=== PATIENT | female | born 2000 | race Caucasian/White ===

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

== ENCOUNTER 2018-01-01 01:58 | Inpatient (IN) | payer MEDICAID, SELFPAY ==
--- NOTE | 2017-12-30 | PLAC_PTH ---
PATIENT: USHA HELMS LOC: [facility] U#:[id number] AGE/SX: 17/F ROOM: WP005 RE01/01/[address]: Dr. Carmela Dietz MD : 2000 BED: 1 DIS: 01/05/2018 SPEC #: [id number] RECD: 12/30/17 08:43 STATUS: MARCOS REQ #: [id number] WILLARD: 12/30/17 00:[address]: Carmela Dietz DEPT: SURGICAL PATHOLOGY RECD BY: Benito Bowie ENTERED: 01/01/18 13:39 SP TYPE: PLACENTA OTHR DR: MD Dr. Terrance Gilliam MD Tissues: Placenta, NOS Procedures: Surgery Specimen Level V HEADER OPERATION: Primary section PRE-OP DIAGNOSIS: Primary section TISSUE SUBMITTED: Placenta MICROSCOPIC DIAGNOSIS Placenta: Placental disc - third trimester placenta (521 gm). - Focal acute vasculitis of subamnionic blood vessels. - Focal increased intervillous and perivillous fibrin deposition (peripheral portion of placenta). Membranes - acute chorioamnionitis. Umbilical cord - three blood vessels and acute funisitis. SJ:james 01/03/18 MICROSCOPIC DESCRIPTION Slides are reviewed. GROSS DESCRIPTION SPECIMEN: PLACENTA / CLINICAL INFORMATION: A. Weight: 3.494 kg B. Gestational Age: 39 weeks C. Sex: Female PLACENTAL WEIGHT (POST FIXATION): 521 gm PLACENTAL DIMENSIONS: 20 x 17 x 3 cm PLACENTAL SHAPE: Usual ovoid PLACENTAL WEIGHT FOR GESTATIONAL AGE: Within 10-99th percentile MEMBRANES - Present A. Insertion: Marginal B. Site of rupture from edge: 6 cm from edge of placental disc and are partly fragmented. C. Color of membrane: Alvarez-diallo D. Abnormalities: None UMBILICAL CORD - Present A. Color: Alvarez-diallo B. Insertion: Paracentral C. Length: 24 cm D. Diameter: 1.2 cm E. Number of vessels: Three F. Abnormalities: None PLACENTAL DISC - Present A. Color of surface: Alvarez-diallo B. surface abnormalities: None C. Maternal cotyledons: Intact with minimal tears. D. Attached retro placental clot: No clot E. Cut surface: Dark red and spongy F. Lesions: Peripheral portion of the placenta shows a focal plaque-like area on the maternal surface. Sections do not reveal any mass lesion. G. Separate clot: Absent SECTIONS SUBMITTED: 1. Membrane roll 2. Cord, maternal end 3. Cord, end 4. Placental disc, and maternal surfaces 5. Placental disc, and maternal surfaces 6. Placental disc, and maternal surfaces, peripheral portion of placenta with plaque-like area and increased calcification. LAVON:james 01/02/18 TC:2 CPT: 54947
[2017-12-31 23:54] VITALS: BMI 32.4
[2018-01-01] VITALS (25 sets, daily range): BP systolic 91–143; BP diastolic 33–68; PULSE 95–114; RESP 16–20; TEMP 36.3–37.7; O2SAT 93–100
[2018-01-01 00:07] LABS: Bacteria 0 SEEN /hpf (None Seen); Mucous, Urine 0 SEEN /hpf (<or=2+)
[2018-01-01 00:15] LABS: Color, Urine Yellow (Yellow); Glucose, Dipstick Normal (Normal); Ketone-Dipstick Negative (Negative); Leukocyte Esterase-Dipstick 100 /ul (Negative); Nitrite-Dipstick Negative (Negative); Occult Blood-Urine Negative /ul (Negative); Protein-Dipstick Negative (Negative); Urine Bilirubin Dipstick Negative (Negative); Urine Clarity Clear (Clear); Urine Urobilinogen Normal (Normal)
[2018-01-01 00:24] LABS: Red Blood Cells-Urine 0-5 SEEN /hpf (0-5); Squamous Epithelial Cells - UA 5-10 SEEN /hpf (5-10); White Blood Cells 5-10 SEEN /hpf (0-5)
[2018-01-01] MEDS: Lactated Ringers 1,000 ML 999 ML IV (01:10)
[2018-01-01 01:41] LABS: Hematocrit 36.1 % (37-47); Hemoglobin 12.2 g/dl (12.0-15.0); Mean Corp Hgb Conc 33.8 g/gl (32-36); Mean Corpuscular Hgb 31.2 pg (27.0-32.0); Mean Corpuscular Volume 92.3 fL (81-99); Mean Platelet Vol. 10.1 fl (6.2-12.0); Platelet Count 298 K/mm3 (150-450); RBC Distribution Width CV 13.9 % (11.6-14.6); Red Blood Count 3.91 M/mm3 (4.2-5.4); White Blood Count 22.2 K/mm3 (4.4-11.0)
[2018-01-01 01:43] LABS: Scan Indicated on CBC? Y/N NO
[2018-01-01 01:48] LABS: Fibrinogen 558 mg/dl (203-444)
[2018-01-01] MEDS: Acetaminophen 500 MG Tablet 1000 MG PO (01:48)
[2018-01-01] MEDS: Ondansetron 4 MG/2 ML Vial IV (01:49)
[2018-01-01 01:54] LABS: ROM Internal Control Test YES-OK TO RESULT pt. (Internal QC)
[2018-01-01 01:55] LABS: ROM Patient Test POSITIVE (Negative)
[2018-01-01] MEDS: Cefazolin 2 GM in 0.9% Normal Saline 100 ML IV (02:20)
--- NOTE | 2018-01-01 03:05 | HP.PCM_ITS ---
- Problem List (1) SROM (spontaneous rupture of membranes) Status: Acute (2) Maternal fever during labor Status: Acute (3) Chorioamnionitis in third trimester Status: Acute Qualifiers: Fetus number: single or unspecified fetus Qualified Code(s): O41.1230 - Chorioamnionitis, third trimester, not applicable or unspecified History Date of Admission: 01/01/18 Final ОЛЕГ: 01/06/18 Final ОЛЕГ Source: US <20 weeks Gestational age: 39 Weeks and 2 Days History of this : This is a 17 year-old, G [2], P [0], at 39 weeks gestational age reporting onset of increasing abdominal and back pain. Patient reports +FM, denies VB or LOF. Patient initiated care in 1st trimester, ML to [facility] at 22 weeks x 8 visits. course uncomplicated. Initial temperature was 99.6 F per nursing staff on triage admission and within an hour maternal temperature increased to 100.8 F and then 101.9 F. Patient also started vomiting and feeling nauseous. Small gush fluid from vagina noted at 0020 01/01/18 during episode of vomiting. Allergies diphenhydramine [From Benadryl] Allergy (Verified 12/30/17 00:38) Unknown Penicillins Allergy (Verified 12/30/17 00:38) Unknown codeine Adverse Reaction (Verified 12/31/17 23:56) Unknown Home Medications: Home Medications Vit Calc,Iron,Folic [ Vitamins] 1 each PO DAILY 07/09/17 Smoking Status: Former smoker Alcohol: None Substance Use Type: Marijuana Number of Fetus(es): 1 Heart Tracing: Baseline initially 160 with minimal to moderate variability, no decelerations noted. After episode of vomiting and noted spike in maternal temperature to 100.8 and then 101.9 F baseline noted to be 180 with minimal to moderate variability, no decelerations noted. Currently after Tylenol 1 g PO x 1 and initiation of triple antibiotics for suspected chorioamnionitis (Triple I) baseline 155 with minimal to moderate variability, no decelerations noted. TOCO Analysis: Frequent ctx q 2 minutes lasting 30-60 seconds, palpating moderately strong History Past Pregnancies: Past Pregnancies Delivery Date Name GA/Weeks Outcome Route Weight Gender Labor Length Anesthesia Delivery Location Provider FOB Labs: GBS +, Urine Tox = + marijuana, A+, Abs screen NEG, Rubella IMM, HIV NEG, HepBsAg NEG, CBC WNL x 2, 1 GCT WNL, RPR NR, TSH WNL, Urine Culture NEG Expected Delivery Method: Spontaneous Vaginal Describe any other labor & delivery plans:: Desires epidural and other pain management options Number of Visits: 8 with [place] office, ML @ 22 wks. Review of Systems Constitutional: Reports: Chills, Fever Cardiovascular: Denies: Chest Pain, Edema Respiratory: Denies: Shortness of Breath Gastrointestinal: Reports: Abdominal Pain, Nausea, Vomiting Genitourinary: Denies: Dysuria, Frequency Gynecological: Denies: Vaginal bleeding, Vaginal discharge Skin: Denies: Rash Neurological: Denies: Blurred vision, Headaches Physical Exam General: Alert, Oriented x3, Cooperative HEENT: Atraumatic, Normocephalic Cardiovascular: Regular Rhythm, Tachycardic Lungs: Normal air movement Abdomen: Soft, Non-Distended, No Hepato-splenomegaly, Gravid - EFW = 7.5 #, Tender Extremities:: No edema, No tenderness/swelling Neurological: Cranial nerves II-XII grossly intact, Deep Tendon Reflexes 2+/4 and Symmetrical PEDIATRIC ORTHODONTIST: Normal external genitalia Estimated gestational size: Appropriate for gestational size Presentation: Cephalic Cervix Dilation (cm): 3 - Initial exam by RN Station: -2 Effacement (%): 75 Assessment/Plan All Active Problems False labor after 37 completed weeks of gestation (Acute) Shortness of breath due to in third trimester (Acute) SROM (spontaneous rupture of membranes) (Acute) Maternal fever during labor (Acute) Chorioamnionitis in third trimester (Acute) Ectopic without intrauterine (Acute) This is a 17 year-old, G [2], P [0], at 39 weeks gestational age, SROM, Maternal Fever, Category II FHT. DDx: Probable Triple I- purulent amniotic fluid at AROM of forebag, Appendicitis - unlikely as no guarding or rebound tenderness on exam, Influenza - Ruled Out, Placental Abruption - not ruled out, though abdomen is non-rigid and does soften between contractions P: 1) Consultation with Dr. J Luis BARBOZA OB back-up re: this patient - based on patient presentation and lab work patient likely has Probable Triple I, will continue to assess for presence of other possible DDx 2) Admit patient - start IV triple antibiotic course at this time. Patient is PCN allergic, will give Ancef in lieu of Ampicillin 3) Placement of internal FSE and IUPC monitors, AROM for purulent non-odorous amniotic fluid noted. SVE = 4/80/-2 on repeat SVE by this provider. 4) Nitrous oxide at this time, anesthesia consult for epidural placement. 5) Reassess for cervical change for change in maternal or status Re GONZALEZ
[2018-01-01] MEDS: Lactated Ringers 1,000 ML 50 ML IV ×2 (03:14→06:00)
[2018-01-01] MEDS: fentaNYL-bupivacaine (epidural) 100 ML BAG EPIDURAL (03:17)
[2018-01-01] MEDS: 0.9% Saline Lock 10 ML Syringe IV (03:30)
[2018-01-01 05:33] LABS: Vista UDS pH Range 7
[2018-01-01 05:44] LABS: Amphetamine Urine VISTA NEGATIVE (<1000 ng/mL); Barbiturate Urine VISTA NEGATIVE (< 200 ng/mL); Benzodiazepine Urine VISTA NEGATIVE (< 200 ng/mL); Cocaine Urine VISTA NEGATIVE (< 300 ng/mL); Ecstacy Urine VISTA NEGATIVE (< 500 ng/mL); Methadone Urine VISTA NEGATIVE (< 300 ng/mL); PCP Urine VISTA NEGATIVE (< 25 ng/mL); THC Urine VISTA NEGATIVE (< 50 ng/mL)
--- NOTE | 2018-01-01 06:23 | PCM.PN.OB ---
Patient Problems: Active and Suspected Problems SROM (spontaneous rupture of membranes) (Acute) Maternal fever during labor (Acute) Chorioamnionitis in third trimester (Acute) Subjective: Patient able to cope better with ctx at this time, reports some sharp vaginal pain still however with contractions. Over last hour, decreased variability noted and occasional late decels noted. Nursing staff called this provider to evaluate tracing. Objective: Abdomen with mild tenderness x 4 quadrants, no rebound or guarding noted FHT baseline 155 minimal variability, no accels, rare mild decels and rare late decels that easily resolve with position change Ctx q 2-3 minutes, palpate moderately strong SVE = 5-6/95/-1 on last exam 20 minutes ago. - Physical Exam Weight: 210 lb 5.136 oz Body Mass Index (BMI) 32.4 Microbiology Past 72 Hours 01/01/18 01:50 Influenza Types A,B Direct FA (HERSON) - Final Mucosa - Nose Laboratory Tests Past 24 Hrs 12/31/17 01/01/18 01/01/18 23:45 01:10 01:10 WBC 22.2 H RBC 3.91 L Hgb 12.2 Hct 36.1 L MCV 92.3 MCH 31.2 MCHC 33.8 RDW 13.9 RDW Differential 46.0 H Plt Count 298 MPV 10.1 Fibrinogen Urine Color Yellow Urine Clarity Clear Urine pH 7.0 Ur Specific [place] 1.010 Urine Protein Negative Urine Glucose (UA) Normal Urine Ketones Negative Urine Occult Blood Negative Urine Nitrite Negative Urine Bilirubin Negative Urine Urobilinogen Normal Ur Leukocyte Esterase 100 H Urine RBC 0-5 SEEN Urine WBC 5-10 SEEN Ur Squamous Epith Cells 5-10 SEEN Urine Bacteria 0 SEEN Urine Mucus 0 SEEN Vag Amniotic Fld Detect Urine Opiates Screen Urine Methadone Screen Ur Barbiturates Screen Ur Phencyclidine Scrn Ur Amphetamines Screen U Methamphetamin-MDMA U Benzodiazepines Scrn Urine Cocaine Screen U Cannabinoids Screen Ur Drug Screen Comment Blood Type A POSITIVE Antibody Screen NEGATIVE 01/01/18 01/01/18 01/01/18 01:10 01:40 05:15 WBC RBC Hgb Hct MCV MCH MCHC RDW RDW Differential Plt Count MPV Fibrinogen 558 H Urine Color Urine Clarity Urine pH Ur Specific [place] Urine Protein Urine Glucose (UA) Urine Ketones Urine Occult Blood Urine Nitrite Urine Bilirubin Urine Urobilinogen Ur Leukocyte Esterase Urine RBC Urine WBC Ur Squamous Epith Cells Urine Bacteria Urine Mucus Vag Amniotic Fld Detect POSITIVE H Urine Opiates Screen NEGATIVE Urine Methadone Screen NEGATIVE Ur Barbiturates Screen NEGATIVE Ur Phencyclidine Scrn NEGATIVE Ur Amphetamines Screen NEGATIVE U Methamphetamin-MDMA NEGATIVE U Benzodiazepines Scrn NEGATIVE Urine Cocaine Screen NEGATIVE U Cannabinoids Screen NEGATIVE Ur Drug Screen Comment Blood Type Antibody Screen Medical Necessity - Tobacco Use Smoking Status: Former smoker Assessment/Plan All Active Problems False labor after 37 completed weeks of gestation (Acute) Shortness of breath due to in third trimester (Acute) SROM (spontaneous rupture of membranes) (Acute) Maternal fever during labor (Acute) Chorioamnionitis in third trimester (Acute) Ectopic without intrauterine (Acute) A: 17 y/o @ 39.2 weeks, Category II FHT, Suspected Triple I (Chorioamnionitis) P: 1) Consultation with Dr. Dietz done re: this patient - plan for primary LTCS if changes in heart rate or if cervix is unchanged. 2) During the writing of this progress note - prolonged decel x 2 minutes with zak to 90's. Minimal variability noted still at this time. Will proceed with LTCS at this time. Dr. J Luis BARBOZA en route to hospital now. 3) Transfer of care to medical management Re GONZALEZ
[2018-01-01] MEDS: Oxytocin 30 units/NS 500 ml 30 UNITS/500 ML IV.SOLN 167 UNITS IV (07:01)
--- NOTE | 2018-01-01 07:20 | NURSING ---
Received report from King Elkins RN in OR. I will assume care of patient a this time.
--- NOTE | 2018-01-01 07:31 | OP.PCM_ITS ---
Delivery Classification: LUCINDA Final ОЛЕГ: 01/06/18 Gestational age: 39 Weeks and 2 Days Indications for : Nonreassuring Status - Prolonged decelerations, intermittent mitten variable decelerations, persistent category 2 tracing remote from delivery, - - Acute chorioamnionitis, prolonged rupture of membranes Description of Procedure: Oneil Dutta PETEJacobo had been comanaging this patient for suspected prolonged rupture of membranes and acute chorioamnionitis. She had intermittent prolonged decelerations along with tachycardia. At times she had minimal variability, at times there is moderate. The decision was made to proceed with section for persistent category 2 tracing remote from delivery with acute chorioamnionitis. The patient was taken to the operating room. She was prepped and draped in the dorsal supine position with a leftward tilt. A Pfannenstiel skin incision was made approximately 2 cm above the symphysis pubis and carried through to underlying layer fascia with the scalpel. The fascia was incised incised in the midline and extended laterally with the Alfonso scissors. The fascia was dissected off the rectus muscles with blunt and sharp dissection. The rectus muscles were in the midline and the peritoneum was entered bluntly. The peritoneal incision was stretched and the bladder blade was placed. The uterine incision was made in a low transverse fashion with the scalpel and extended superiorly and inferiorly with blunt dissection. The amniotic membranes had been previously ruptured, some cloudy, purulent appearing fluid returned after hysterotomy. The 's head was brought to the incision in the flexed position and delivered without difficulty. The remainder of the infant was delivered with gentle traction and fundal pressure in the standard fashion. The mouth and nares were bulb suctioned. The cord was clamped and cut as the was stimulated. Cord clamping was not delayed due to the infant not immediately being vigorous. She had good tone, color and a normal heart rate but not respiratory effort. The was handed off to the waiting nursing staff. As the infant was transported and arrived to the warmer, she began to cry. The placenta was delivered with fundal massage and gentle traction in the standard fashion. The uterus was exteriorized and cleared of all clots and debris. . The uterine incision was closed with #1 Vicryl in a running locked fashion. A second layer of the same suture was used in an imbricating fashion. The incision was examined and was found to be hemostatic. The uterus was placed back into the peritoneal cavity and hemostasis was again confirmed. The rectus muscles were examined and any bleeding was Bovie cauterized. The parietal peritoneum and rectus muscles were closed en bloc with an 0 Vicryl running suture. The surgical teams outer gloves were then changed. The rectus fascia was examined and any bleeding was Bovie cauterized and the rectus fascia was closed with 1 Vicryl suture in a running standard fashion. The subcutaneous tissue was examining and any bleeding was Bovie cauterized. The subcutaneous tissue was reapproximated with 3-0 Vicryl suture. The skin was closed in a subcuticular fashion by the HEEL SEAT FILLER with me present in the labor and delivery suite. I performed the remainder of the procedure with assistance. All sponge, lap, and needle counts were correct. The patient was taken to her room for recovery in a stable condition. Amniotic Membrane Rupture Type: Spontaneous - at home Amniotic Fluid Description: Cloudy - no odor Placenta Disposition: Sent to Pathology Drain: Olguin to straight drain Fluids Replaced: 1300 cc Cord Entanglement: Around neck x 1, loose Nuchal Cord Compression: Without compression Cord Vessel Description: 3 Vessels Esitmated Blood Loss (ml): 900 Infant Gender: Female Delayed cord clamping: No Pre-op Antibiotic Given: - - ampicillin, gentamicin and clindamycin for chorioamnionitis Complications: None - Admit VTE Documentation VTE Present on Admission: No VTE Mechan Device Prophylaxis: SCD's VTE Pharm Prophylaxis ordered?: Yes
[2018-01-01 08:43] LABS: Pathology Specimen OB SEE PATHOLOGY REPORT
--- NOTE | 2018-01-01 09:52 | NURSING ---
Dr. Dietz at bedside to evaluate patient. Ultrasound performed to rule out retention of placenta. No clots visualized. Uterus is measuring small on ultrasound, 6cm. New orders received for stat CBC, Lactic acid, and lactate. Will call OB with results.
[2018-01-01 10:37] LABS: Hematocrit 29.7 % (37-47); Hemoglobin 9.9 g/dl (12.0-15.0); Mean Corp Hgb Conc 33.3 g/gl (32-36); Mean Corpuscular Hgb 31.1 pg (27.0-32.0); Mean Corpuscular Volume 93.4 fL (81-99); Mean Platelet Vol. 10.3 fl (6.2-12.0); Platelet Count 259 K/mm3 (150-450); RBC Distribution Width CV 14.1 % (11.6-14.6); RBC Distribution Width SD 46.4 fl (35.1-43.9); Red Blood Count 3.18 M/mm3 (4.2-5.4); White Blood Count 28.8 K/mm3 (4.4-11.0)
[2018-01-01 10:45] LABS: LDH 171 U/L (84-246); Lactic Acid 2.8 mmol/L (0.4-2.0)
[2018-01-01 10:53] LABS: Scan Indicated on CBC? Y/N NO
--- NOTE | 2018-01-01 11:02 | NURSING ---
late entry-fluids at delivery were clear but thick
--- NOTE | 2018-01-01 11:52 | RAD_ITS ---
STUDY: X-RAY CHEST REASON FOR EXAM: Female, 17 years old. Fever since prior to baby delivery. TECHNIQUE: Single AP portable semierect view of the chest. COMPARISON: None. FINDINGS: The lungs are clear and expanded. There is no demonstrated pleural abnormality. The heart size is upper normal. Normal mediastinum and laura. Normal visualized pulmonary arteries. Normal visualized aortic arch and descending thoracic aorta. Normal visualized thoracic spine. Normal visualized ribs, clavicles, and shoulders. There is no demonstrated abnormality of the visualized soft tissue structures of the upper abdomen. RAD/Chest 1 View (Portable) IMPRESSION: No acute cardiopulmonary disease. Electronically Signed: Rishabh Ayala MD at 13:13 EDT , Service support ,
[2018-01-01] MEDS: Lactated Ringers 1,000 ML 100 ML IV (12:24)
--- NOTE | 2018-01-01 13:09 | NURSING ---
Report given to Elida Hauser RN. She will assume care of patient at this time.
[2018-01-01] MEDS: Cefazolin 1 GM/50 ML BAG IV ×2 (13:36→22:13)
--- NOTE | 2018-01-01 13:37 | NURSING ---
Spoke to Dr. Pinto's nurse practioner about patient condition. Notified of vital signs, urinary output, new findings of swollen legs and abdomen. Notified of 500ml fluid bolus given. Scheduled dose of Toradol being held at this time. She will notify Dr. Pinto and call back with any orders. Dr. Pinto will be on unit to see patient in the 2 o'clock hour.
--- NOTE | 2018-01-01 13:46 | NURSING ---
[id number] this nurse received a call from 's medical research assistant Madyson, she states will be down to see the pt in about 30min.
[2018-01-01 14:04] LABS: Reflex Lactate? Y
[2018-01-01] MEDS: HYDROmorphone 0.5 MG/0.5 ML SYRINGE IV (14:22)
[2018-01-01 15:22] LABS: Hematocrit 28.6 % (37-47); Hemoglobin 9.5 g/dl (12.0-15.0); Mean Corp Hgb Conc 33.2 g/gl (32-36); Mean Corpuscular Hgb 30.7 pg (27.0-32.0); Mean Corpuscular Volume 92.6 fL (81-99); Mean Platelet Vol. 9.5 fl (6.2-12.0); Platelet Count 220 K/mm3 (150-450); RBC Distribution Width CV 14.5 % (11.6-14.6); Red Blood Count 3.09 M/mm3 (4.2-5.4)
[2018-01-01 15:43] LABS: Scan Indicated on CBC? Y/N NO
[2018-01-01 15:46] LABS: Lactic Acid 1.6 mmol/L (0.4-2.0)
--- NOTE | 2018-01-01 15:49 | CON.PCM_ITS ---
Problem List (1) Severe sepsis Status: Acute (2) Shortness of breath due to in third trimester Status: Acute (3) SROM (spontaneous rupture of membranes) Status: Acute (4) Maternal fever during labor Status: Acute (5) Chorioamnionitis in third trimester Status: Acute Qualifiers: Fetus number: single or unspecified fetus Qualified Code(s): O41.1230 - Chorioamnionitis, third trimester, not applicable or unspecified Reason for Consult Date of Consultation: 01/01/18 Reason for Consultation: Severe sepsis History of Present Illness: The patient is a 17 year old F at 39 weeks gestation presented to [facility] on 12/31/2017 secondary to increasing abdominal and back pain. Patient reportedly had an uncomplicated course, but was noted in triage to develop a fever of 101.9 ?F. This was associated with nausea and vomiting. Patient reportedly had a small gush of fluid noted from the vagina during an episode of vomiting. Patient was admitted to the floor and monitored. Earlier today, patient was noted to have fever with decelerations. This was associated with sharp vaginal pain. Patient was noted to have mild tenderness throughout all 4 quadrants. Laboratory workup showed a significant leukocytosis, but flu was negative. Patient was diagnosed with acute chorioamnionitis and noted to have intermittent prolonged decelerations along with tachycardia. The decision was made to proceed to . During , amniotic membranes were seen to be ruptured with a cloudy purulent fluid. Following the surgery, patient was noted to have tachycardia, marginal blood pressures and fever so an ICU consult was obtained. Patient was noted to have an elevated lactate of 2.8. Patient was given a 500 cc fluid challenge with no significant change in blood pressure or heart rate per nursing staff. Patient was noted to have increased swelling of the legs and abdominal cavity. Patient was evaluated by my nurse practitioner at approximately 11 AM. Patient has been treated with clindamycin and gent. Patient has IV fluids going at 100 cc/h, but is tolerating p.o. Patient was examined by myself at approximately 3 PM. At that time, patient reported abdominal pain of 5 out of 10 and had received half a milligram of Dilaudid. Patient denied any nausea or vomiting for me. Patient did report a history of obstructive sleep apnea and stated she was treated until the age of 1. She currently does not use any noninvasive therapy for obstructive sleep apnea. Patient also reports a suspicion of asthma in the past, but this is never been confirmed with pulmonary function tests or inhaler therapy. 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 Patient Problems: Active and Suspected Problems SROM (spontaneous rupture of membranes) (Acute) Maternal fever during labor (Acute) Chorioamnionitis in third trimester (Acute) Severe sepsis (Acute) Objective: Chest x-ray was personally reviewed. This shows no acute infiltrate or mediastinal widening. Heart appears to be of normal size. - Physical Exam General: Alert, Oriented x3, Cooperative, No apparent distress, - - Appears stated age. Speaking in full sentences. HEENT: Atraumatic, PERRLA, EOMI, Normocephalic, - - Slight scleral injection without icterus Oral: Moist Mucosa, No Gingival or Mucosal Lesions/ Ulcerations Neck: Supple, No Nodes, Trachea Midline, JVD, Right Lungs: Clear to auscultation, Normal air movement, No rhonchi, No wheeze, No rales, - - Symmetric expansion. No dullness to percussion. Cardiovascular: Regular rate, Regular Rhythm, Normal S1, Normal S2, Murmur - Flow murmur noted, grade 2 out of 6, No rub noted, No Gallop, Tachycardic Abdomen: Soft, Bowel Sounds Not Present, Distended, Tender - Some guarding with mild rebound. Extremities: No clubbing, No cyanosis, Edema Skin: No rashes, No breakdown, Incision - Clean, dry and intact Musculoskeletal: No Tenderness to Palpation of Joints or Extremities Lymphatic: No Cervical, Supraclavicular, or Inguinal Adenopathy Neurological: Cranial nerves II-XII grossly intact, Neuro grossly intact, Motor Exam 5/5 strength throughout Psych/Mental Status: Alert and oriented to time, place, person, mood and affect Vital Signs Temp Pulse Resp BP Pulse Ox 37.2 C 100 16 91/33 L 98 01/01/18 14:24 01/01/18 14:24 01/01/18 14:24 01/01/18 14:24 01/01/18 14:24 Oxygen Delivery Method Room Air Weight: 95.4 kg Body Mass Index (BMI) 32.4 Intake and Output for Last 24 Hours 12/30/17 12/31/17 01/01/18 23:59 23:59 23:59 Intake Total 5203 / 5203 Output Total 1050 / 1050 Balance 4153 / 4153 Microbiology Past 72 Hours 01/01/18 01:50 Influenza Types A,B Direct FA (HERSON) - Final Mucosa - Nose Laboratory Tests Past 24 Hrs 12/31/17 01/01/18 01/01/18 23:45 01:10 01:10 WBC 22.2 H RBC 3.91 L Hgb 12.2 Hct 36.1 L MCV 92.3 MCH 31.2 MCHC 33.8 RDW 13.9 RDW Differential 46.0 H Plt Count 298 MPV 10.1 Fibrinogen Lactic Acid Lactate Dehydrogenase Urine Color Yellow Urine Clarity Clear Urine pH 7.0 Ur Specific Williamson 1.010 Urine Protein Negative Urine Glucose (UA) Normal Urine Ketones Negative Urine Occult Blood Negative Urine Nitrite Negative Urine Bilirubin Negative Urine Urobilinogen Normal Ur Leukocyte Esterase 100 H Urine RBC 0-5 SEEN Urine WBC 5-10 SEEN Ur Squamous Epith Cells 5-10 SEEN Urine Bacteria 0 SEEN Urine Mucus 0 SEEN Vag Amniotic Fld Detect Urine Opiates Screen Urine Methadone Screen Ur Barbiturates Screen Ur Phencyclidine Scrn Ur Amphetamines Screen U Methamphetamin-MDMA U Benzodiazepines Scrn Urine Cocaine Screen U Cannabinoids Screen Ur Drug Screen Comment Blood Type A POSITIVE Antibody Screen NEGATIVE 01/01/18 01/01/18 01/01/18 01:10 01:40 05:15 WBC RBC Hgb Hct MCV MCH MCHC RDW RDW Differential Plt Count MPV Fibrinogen 558 H Lactic Acid Lactate Dehydrogenase Urine Color Urine Clarity Urine pH Ur Specific Williamson Urine Protein Urine Glucose (UA) Urine Ketones Urine Occult Blood Urine Nitrite Urine Bilirubin Urine Urobilinogen Ur Leukocyte Esterase Urine RBC Urine WBC Ur Squamous Epith Cells Urine Bacteria Urine Mucus Vag Amniotic Fld Detect POSITIVE H Urine Opiates Screen NEGATIVE Urine Methadone Screen NEGATIVE Ur Barbiturates Screen NEGATIVE Ur Phencyclidine Scrn NEGATIVE Ur Amphetamines Screen NEGATIVE U Methamphetamin-MDMA NEGATIVE U Benzodiazepines Scrn NEGATIVE Urine Cocaine Screen NEGATIVE U Cannabinoids Screen NEGATIVE Ur Drug Screen Comment Blood Type Antibody Screen 01/01/18 01/01/18 01/01/18 09:45 09:55 09:55 WBC 28.8 H RBC 3.18 L Hgb 9.9 L Hct 29.7 L MCV 93.4 MCH 31.1 MCHC 33.3 RDW 14.1 RDW Differential 46.4 H Plt Count 259 MPV 10.3 Fibrinogen Lactic Acid 2.8 H Lactate Dehydrogenase 171 Urine Color Urine Clarity Urine pH Ur Specific Williamson Urine Protein Urine Glucose (UA) Urine Ketones Urine Occult Blood Urine Nitrite Urine Bilirubin Urine Urobilinogen Ur Leukocyte Esterase Urine RBC Urine WBC Ur Squamous Epith Cells Urine Bacteria Urine Mucus Vag Amniotic Fld Detect Urine Opiates Screen Urine Methadone Screen Ur Barbiturates Screen Ur Phencyclidine Scrn Ur Amphetamines Screen U Methamphetamin-MDMA U Benzodiazepines Scrn Urine Cocaine Screen U Cannabinoids Screen Ur Drug Screen Comment Blood Type Antibody Screen 01/01/18 01/01/18 15:09 15:09 WBC Pending RBC Pending Hgb Pending Hct Pending MCV Pending MCH Pending MCHC Pending RDW Pending RDW Differential Pending Plt Count Pending MPV Fibrinogen Lactic Acid Pending Lactate Dehydrogenase Urine Color Urine Clarity Urine pH Ur Specific Williamson Urine Protein Urine Glucose (UA) Urine Ketones Urine Occult Blood Urine Nitrite Urine Bilirubin Urine Urobilinogen Ur Leukocyte Esterase Urine RBC Urine WBC Ur Squamous Epith Cells Urine Bacteria Urine Mucus Vag Amniotic Fld Detect Urine Opiates Screen Urine Methadone Screen Ur Barbiturates Screen Ur Phencyclidine Scrn Ur Amphetamines Screen U Methamphetamin-MDMA U Benzodiazepines Scrn Urine Cocaine Screen U Cannabinoids Screen Ur Drug Screen Comment Blood Type Antibody Screen Clinical Impression(s) from Imaging Studies Chest X-Ray 01/01/18 11:52 IMPRESSION: No acute cardiopulmonary disease. Electronically Signed: Rishabh Ayala MD at 13:13 EDT , Service support , Assessment/Plan Active and Suspected Problems SROM (spontaneous rupture of membranes) (Acute) Maternal fever during labor (Acute) Chorioamnionitis in third trimester (Acute) Severe sepsis (Acute) RECOMMENDATIONS: 1. Await repeat lactate 2. Continue antibiotics per OB 3. Obtain CMP for evaluation of endorgan damage 4. Monitor for abdominal compartment syndrome 5. Aggressive pain control and incentive spirometer 6. Continuous pulse ox IMPRESSIONS: 1. Severe sepsis secondary to acute chorioamnionitis and prolonged rupture of membranes Patient with fever, tachycardia and tachypnea. Lactate is elevated initially, but repeat is currently pending. Patient should have a CMP obtained to evaluate for endorgan damage. Patient has had some decreased urine output with abdominal distention. Do anticipate significant swelling over the next 24- 48 hours. Patient has been placed on appropriate antibiotics at this time. Continue to monitor urine output. Patient should continue with aggressive pain control and incentive spirometer. Would avoid morphine as this could exacerbate hypotension. Cannot exclude the need for central line placement of pressor therapy. 2. Reported BILL Patient does have obesity and reports a history of BILL in the past. Patient may benefit from a polysomnogram as an outpatient. In the interim, continuous pulse oximetry would be appropriate. If patient does desaturate, initiation of BiPAP 10/5 empirically would be appropriate. 3. Patient does not appear to have an enlarged cardiac silhouette on chest x- ray. Patient may have decreased blood pressures from dilated cardiomyopathy, but would hold off on obtaining echocardiogram until patient shows more decompensation. Otherwise routine care would be appropriate.
[2018-01-01] MEDS: Ketorolac 30 MG/ML Syringe IV ×2 (17:13→23:06)
[2018-01-01 17:40] LABS: ALB/GLOB Ratio 0.6 RATIO (0.9-2.4); AST(SGOT) 17 U/L (15-37); Alanine Aminotransfer ALT/SGPT 14 U/L (13-56); Albumin, Serum 2.1 g/dL (3.2-5.0); Alkaline Phosphatase 102 U/L (45-117); Anion Gap 10 (5-15); BUN 11 mg/dL (7-18); BUN/Creat Ratio 19.1 RATIO (10-20); Calcium,Total 7.8 mg/dL (8.5-10.1); Chloride 106 mmol/L (98-107); Creatinine, Serum 0.58 mg/dL (0.55-1.02); EST Glomerular Filtration Rate 143 mL/min (>60); Est Glom Filt Rate - Afr Amer 173 mL/min (>60); Estimated Creatinine Clearance 151.71 ml/min; Globulin 3.5 g/dL (2.2-4.2); Glucose 69 mg/dL (74-106); Potassium 3.9 mmol/L (3.5-5.1); Protein, Total 5.6 g/dL (6.4-8.2); Sodium Level 140 mmol/L (136-145)
--- NOTE | 2018-01-01 17:53 | NURSING ---
Pt assisted up into the rocking chair, pt states that helped the pain she was having in her back, pt is using the incentive spirometer and drinking water. Urometer emptied for 200cc of policy writer typist colored urine, she totals 400cc out since 1330.
[2018-01-01] MEDS: Senna/Docusate Sodium 1 Tablet PO (23:05)
[2018-01-02] VITALS (8 sets, daily range): BP systolic 98–119; BP diastolic 38–68; PULSE 102–117; RESP 14–18; TEMP 36.8–37.3; O2SAT 95–98
[2018-01-02] MEDS: Lactated Ringers 1,000 ML 100 ML IV (01:31)
[2018-01-02] MEDS: Ketorolac 30 MG/ML Syringe IV ×3 (04:54→17:17)
[2018-01-02] MEDS: Cefazolin 1 GM/50 ML BAG IV ×3 (05:54→21:55)
[2018-01-02 06:25] LABS: Hemoglobin 9.1 g/dl (12.0-15.0); Mean Corp Hgb Conc 32.5 g/gl (32-36); Mean Corpuscular Hgb 30.7 pg (27.0-32.0); Mean Corpuscular Volume 94.6 fL (81-99); Mean Platelet Vol. 9.7 fl (6.2-12.0); Platelet Count 230 K/mm3 (150-450); RBC Distribution Width CV 14.4 % (11.6-14.6); RBC Distribution Width SD 47.4 fl (35.1-43.9); Red Blood Count 2.96 M/mm3 (4.2-5.4); White Blood Count 23.1 K/mm3 (4.4-11.0)
[2018-01-02 06:27] LABS: Anion Gap 8 (5-15); BUN 11 mg/dL (7-18); BUN/Creat Ratio 18.2 RATIO (10-20); Calcium,Total 7.8 mg/dL (8.5-10.1); Chloride 110 mmol/L (98-107); EST Glomerular Filtration Rate 135 mL/min (>60); Est Glom Filt Rate - Afr Amer 164 mL/min (>60); Estimated Creatinine Clearance 146.66 ml/min; Glucose 99 mg/dL (74-106); Magnesium 1.7 mg/dL (1.6-2.6); Phosphorus 3.4 mg/dL (2.5-4.9); Potassium 3.8 mmol/L (3.5-5.1); Sodium Level 141 mmol/L (136-145)
[2018-01-02] MEDS: Enoxaparin 40 MG/0.4 ML Syringe SC (06:32)
[2018-01-02 06:33] LABS: Scan Indicated on CBC? Y/N NO
--- NOTE | 2018-01-02 07:52 | PCM.PN.OB ---
Patient Problems: Active and Suspected Problems SROM (spontaneous rupture of membranes) (Acute) Maternal fever during labor (Acute) Chorioamnionitis in third trimester (Acute) Severe sepsis (Acute) Subjective: Pain well controlled, no N/V. Average lochia. - Physical Exam General: Alert, Cooperative, No apparent distress Abdomen: Soft, Distended - moderately, softly, appropriate for postop, Tender - appropriately Skin: Incision - bandage clean, dry and intact Vital Signs Temp Pulse Resp BP Pulse Ox 98.2 F 103 H 18 100/65 98 01/02/18 03:03 01/02/18 05:54 01/02/18 05:54 01/02/18 03:03 01/02/18 05:54 Oxygen Delivery Method Room Air Weight: 95.4 kg Body Mass Index (BMI) 32.4 Intake and Output for Last 24 Hours 12/31/17 01/01/18 01/02/18 23:59 23:59 23:59 Intake Total 6303 / 6303 Output Total 1450 / 1450 1000 / 1000 Balance 4853 / 4853 -1000 / -1000 Microbiology Past 72 Hours 01/01/18 01:50 Influenza Types A,B Direct FA (HERSON) - Final Mucosa - Nose Laboratory Tests Past 24 Hrs 01/01/18 01/01/18 01/01/18 09:45 09:55 09:55 WBC 28.8 H RBC 3.18 L Hgb 9.9 L Hct 29.7 L MCV 93.4 MCH 31.1 MCHC 33.3 RDW 14.1 RDW Differential 46.4 H Plt Count 259 MPV 10.3 Sodium Potassium Chloride Carbon Dioxide Anion Gap BUN Creatinine Estim Creat Clear Calc Est GFR (MDRD) Af Amer Est GFR (MDRD) Non-Af BUN/Creatinine Ratio Glucose Lactic Acid 2.8 H Calcium Phosphorus Magnesium Total Bilirubin AST ALT Alkaline Phosphatase Lactate Dehydrogenase 171 Total Protein Albumin Globulin Albumin/Globulin Ratio 01/01/18 01/01/18 01/01/18 15:09 15:09 16:48 WBC 24.0 H RBC 3.09 L Hgb 9.5 L Hct 28.6 L MCV 92.6 MCH 30.7 MCHC 33.2 RDW 14.5 RDW Differential 49.0 H Plt Count 220 MPV 9.5 Sodium 140 Potassium 3.9 Chloride 106 Carbon Dioxide 24.0 Anion Gap 10 BUN 11 Creatinine 0.58 Estim Creat Clear Calc 151.71 Est GFR (MDRD) Af Amer 173 Est GFR (MDRD) Non-Af 143 BUN/Creatinine Ratio 19.1 Glucose 69 L Lactic Acid 1.6 Calcium 7.8 L Phosphorus Magnesium Total Bilirubin 0.50 AST 17 ALT 14 Alkaline Phosphatase 102 Lactate Dehydrogenase Total Protein 5.6 L Albumin 2.1 L Globulin 3.5 Albumin/Globulin Ratio 0.6 L 01/02/18 01/02/18 06:07 06:07 WBC 23.1 H RBC 2.96 L Hgb 9.1 L Hct 28.0 L MCV 94.6 MCH 30.7 MCHC 32.5 RDW 14.4 RDW Differential 47.4 H Plt Count 230 MPV 9.7 Sodium 141 Potassium 3.8 Chloride 110 H Carbon Dioxide 23.0 Anion Gap 8 BUN 11 Creatinine 0.60 Estim Creat Clear Calc 146.66 Est GFR (MDRD) Af Amer 164 Est GFR (MDRD) Non-Af 135 BUN/Creatinine Ratio 18.2 Glucose 99 Lactic Acid Calcium 7.8 L Phosphorus 3.4 Magnesium 1.7 Total Bilirubin AST ALT Alkaline Phosphatase Lactate Dehydrogenase Total Protein Albumin Globulin Albumin/Globulin Ratio Medical Necessity - Tobacco Use Smoking Status: Former smoker Assessment/Plan All Active Problems False labor after 37 completed weeks of gestation (Acute) Shortness of breath due to in third trimester (Acute) SROM (spontaneous rupture of membranes) (Acute) Maternal fever during labor (Acute) Chorioamnionitis in third trimester (Acute) Severe sepsis (Acute) Ectopic without intrauterine (Acute) POD#1 S/p primary c/s for chorioamnionitis and nonreassuring FHTs and subsequent sepsis clinically improved, afebrile, appears to be diuresing. WBC down cont. antibiotics for now. Ok to d/c whitman and continue to monitor Is and Os ambulate, cont. w/ incentive spirometer is doing well
[2018-01-02] MEDS: oxyCODONE 5 MG Tablet PO ×4 (08:06→22:39)
[2018-01-02] MEDS: Senna/Docusate Sodium 1 Tablet PO ×2 (08:06→21:55)
[2018-01-02] MEDS: 0.9% Saline Lock 10 ML Syringe IV ×4 (08:07→22:40)
--- NOTE | 2018-01-02 11:10 | PCM.PROGNOTE ---
Patient Problems: Active and Suspected Problems SROM (spontaneous rupture of membranes) (Acute) Maternal fever during labor (Acute) Chorioamnionitis in third trimester (Acute) Severe sepsis (Acute) Subjective: The patient was seen and examined at the bedside this morning. Events from the last 24 hours have been reviewed. The patient is currently afebrile, hemodynamically stable and maintaining appropriate oxygen saturations on room air. No overnight events were noted. The patient is resting comfortably with her mother and infant at the bedside. She denies any chest pain or shortness of breath. Pain is under control. Objective: The patient's most recent lab work, culture data and imaging studies have all been personally reviewed. Plain film chest x-ray dated January 01 revealed no acute cardiopulmonary process. Rapid influenza screen was negative. - Physical Exam General: Alert, Oriented x3, Cooperative, No apparent distress HEENT: Atraumatic, PERRLA, Normocephalic Oral: No Gingival or Mucosal Lesions/ Ulcerations Neck: Supple, No Nodes, Trachea Midline Lungs: Normal air movement, No rhonchi, No wheeze, No rales Cardiovascular: Normal S1, Normal S2, No murmurs, Tachycardic Abdomen: Bowel Sounds Present, Soft, Tender Extremities: No clubbing, No cyanosis, Edema Skin: No breakdown, Incision - C/D/I Musculoskeletal: No Tenderness to Palpation of Joints or Extremities, No Muscle Wasting Lymphatic: No Cervical, Supraclavicular, or Inguinal Adenopathy Neurological: Cranial nerves II-XII grossly intact, Neuro grossly intact Psych/Mental Status: Alert and oriented to time, place, person, mood and affect Vital Signs Temp Pulse Resp BP Pulse Ox 98.4 F 106 H 16 117/68 98 01/02/18 07:45 01/02/18 07:45 01/02/18 07:45 01/02/18 07:45 01/02/18 07:45 Oxygen Delivery Method Room Air Weight: 210 lb 5.136 oz Body Mass Index (BMI) 32.4 Intake and Output for Last 24 Hours 12/31/17 01/01/18 01/02/18 23:59 23:59 23:59 Intake Total 6303 / 6303 1331 / 1331 Output Total 1450 / 1450 2200 / 2200 Balance 4853 / 4853 -869 / -869 Microbiology Past 72 Hours 01/01/18 01:50 Influenza Types A,B Direct FA ([facility]ERSON) - Final Mucosa - Nose Laboratory Tests Past 24 Hrs 01/01/18 01/01/18 01/01/18 15:09 15:09 16:48 WBC 24.0 H RBC 3.09 L Hgb 9.5 L Hct 28.6 L MCV 92.6 MCH 30.7 MCHC 33.2 RDW 14.5 RDW Differential 49.0 H Plt Count 220 MPV 9.5 Sodium 140 Potassium 3.9 Chloride 106 Carbon Dioxide 24.0 Anion Gap 10 BUN 11 Creatinine 0.58 Estim Creat Clear Calc 151.71 Est GFR (MDRD) Af Amer 173 Est GFR (MDRD) Non-Af 143 BUN/Creatinine Ratio 19.1 Glucose 69 L Lactic Acid 1.6 Calcium 7.8 L Phosphorus Magnesium Total Bilirubin 0.50 AST 17 ALT 14 Alkaline Phosphatase 102 Total Protein 5.6 L Albumin 2.1 L Globulin 3.5 Albumin/Globulin Ratio 0.6 L 01/02/18 01/02/18 06:07 06:07 WBC 23.1 H RBC 2.96 L Hgb 9.1 L Hct 28.0 L MCV 94.6 MCH 30.7 MCHC 32.5 RDW 14.4 RDW Differential 47.4 H Plt Count 230 MPV 9.7 Sodium 141 Potassium 3.8 Chloride 110 H Carbon Dioxide 23.0 Anion Gap 8 BUN 11 Creatinine 0.60 Estim Creat Clear Calc 146.66 Est GFR (MDRD) Af Amer 164 Est GFR (MDRD) Non-Af 135 BUN/Creatinine Ratio 18.2 Glucose 99 Lactic Acid Calcium 7.8 L Phosphorus 3.4 Magnesium 1.7 Total Bilirubin AST ALT Alkaline Phosphatase Total Protein Albumin Globulin Albumin/Globulin Ratio Clinical Impression(s) from Imaging Studies Chest X-Ray 01/01/18 11:52 IMPRESSION: No acute cardiopulmonary disease. Electronically Signed: Rishabh Ayala MD at 13:13 EDT , Service support , Medical Necessity - Tobacco Use Smoking Status: Former smoker Assessment/Plan All Active Problems False labor after 37 completed weeks of gestation (Acute) Shortness of breath due to in third trimester (Acute) SROM (spontaneous rupture of membranes) (Acute) Maternal fever during labor (Acute) Chorioamnionitis in third trimester (Acute) Severe sepsis (Acute) Ectopic without intrauterine (Acute) RECOMMENDATIONS: 1. Continue antibiotics as ordered. 2. Pain control as ordered. 3. Encourage incentive spirometer use and mobilize patient as tolerated. IMPRESSIONS: 1. Severe sepsis secondary to acute chorioamnionitis and prolonged rupture of membranes Patient initially with fever, tachycardia and tachypnea. Serum lactate was initially elevated mildly but normalized with volume expansion. She appears to be doing well clinically at this time without any hemodynamic instability or fevers. Recommend continuing antibiotics as ordered. Will defer pain control to OB. Continue to encourage incentive spirometer use and mobilize patient as tolerated. No additional workup is indicated at this time. 2. Reported BILL Patient does have obesity and reports a history of BILL in the past. Patient may benefit from a polysomnogram as an outpatient. In the interim, continuous pulse oximetry would be appropriate. If patient does desaturate, initiation of BiPAP 10/5 empirically would be appropriate. 3. Patient does not appear to have an enlarged cardiac silhouette on chest x-ray. Continue routine care. This note was generated with [employer] dictation software. It may contain incorrect words, spelling, and punctuation that were not noted in checking the note before signing. DISPOSITION: Given the lack of ongoing ICU needs, will sign off. Please call with any additional questions. Code Visit Inpatient E&M: 34625 Subs Hosp L2
--- NOTE | 2018-01-02 12:05 | CASEMGMT ---
Social Work Labor and Delivery Unit Reason for visit: attempt to complete initial assessment for determination of resource and referral needs. Summary: Social work consult received and noted for maternal history of TCH use. Medical records reviewed. Noted transfer of care to delivering OB practice at22 weeks, noted 2 positive drug screens for MOB during this and then 2 negative drug screens. From records review noted additional risk factors, in addition to THC use, of maternal history of depression, anxiety, and possible overdose. Per conversation with Letha JOSE today, the alleged father of baby (FOB) was observed to be irritable and argumentative with MOB today. An example verbalized to this proposal manager writer was that FOB was coughing forcefully in the room, not covering mouth and when MOB informed the FOB of need to cover mouth FOB argued that was not coughing, just breathing. RN reports that FOB did end up leaving the unit to go to ED to be checked out for cough. RN also reports that FOB irritated with RN asking FOB to participate in care of baby, making comments that MOB has been doing it and that FOB never had to do much for other child living in [place]. Noted in [facility] that FOB did spend some time in rehab at the beginning of this , so possible substance history of FOB also present. Assessment: Presented to MOB's room. MOB up and getting ready to feed baby a bottle. MOB seeming quiet and focused. Introduced self to MOB and reason for visit related to first time mother and young mother (did not go into substance concerns due to MOB's mom being in the room). As the MOB was appearing not the happiest, tense face and constricted affect, at the time of social work presentation, this proposal manager writer offered to MOB to do consult now or later. MOB also focused on getting the baby fed as well, and glancing at cell phone. MOB asked if later would be okay, if this proposal manager writer did not mind. home support worker agreed to come back later. Did note that MOB handled baby gently, had baby in different positions during sr. social media & mobile manager's brief visit. MOB's mother Maryana voiced intent to be at the hospital as MOB's support person, due to the FOB being diagnosed with pneumonia today, not to be around baby for 48 hours. Maryana presenting as supportive today, making comments that has tried to get MOB connected with services during this . Maryana talkative and giving this proposal manager writer update on how doing, as Maryana voiced to this proposal manager writer that this proposal manager writer had once worked with Maryana while Maryana was in the hospital and there was a need to ensure the children had a caregiver while Maryana was in the hospital. Updated nursing staff. Plan: Will stop back to see MOB later today or tomorrow 01.03.2018 for assessment, provision of resources, and determination of need for referrals. -MARYLOU Bo, FORMULATION SCIENTIST
[2018-01-03] VITALS (11 sets, daily range): BP systolic 101–144; BP diastolic 47–66; PULSE 98–133; RESP 18–32; TEMP 37.2–40; O2SAT 94–99
[2018-01-03] MEDS: 0.9% Saline Lock 10 ML Syringe IV ×2 (02:15→22:10)
[2018-01-03] MEDS: Ketorolac 30 MG/ML Syringe IV ×2 (02:15→07:59)
--- NOTE | 2018-01-03 02:29 | NURSING ---
Pt. states she woke up from nap feeling cold. Upon arrival to room, pt. was shaking. Vital signs obtained and charted. IV not flushing and so a new one was started in right hand. Oral temperature obtained and charted as well.
[2018-01-03 02:51] LABS: Absolute Lymphocyte Count 1.65 X10^3/ul (0.83-4.51); Absolute Neutrophil Count 8.9 X10^3/uL (2.0-7.7); Basophil# 0.01 X10^3/uL; Basophil% 0.1 % (0-1); Eosinophil# 0.15 X10^3/uL; Eosinophils% 1.4 % (0-5); Hematocrit 27.8 % (37-47); Hemoglobin 9.1 g/dl (12.0-15.0); Lymphocyte # 1.65 X10^3/ul (4.0); Lymphocyte % 14.9 % (19-41); Mean Corp Hgb Conc 32.7 g/gl (32-36); Mean Corpuscular Hgb 31.1 pg (27.0-32.0); Mean Corpuscular Volume 94.9 fL (81-99); Mean Platelet Vol. 9.6 fl (6.2-12.0); Monocyte# 0.33 X10^3/uL; Neutrophil # 8.89 X10^3/uL (2.7-7.7); Neutrophil % 79.9 % (47-70); Platelet Count 252 K/mm3 (150-450); RBC Distribution Width CV 14.2 % (11.6-14.6); Red Blood Count 2.93 M/mm3 (4.2-5.4); White Blood Count 11.1 K/mm3 (4.4-11.0)
[2018-01-03 03:09] LABS: POSITIVE COUNT NO; POSITIVE DIFFERENTIAL NO; POSITIVE MORPHOLOGY NO
[2018-01-03] MEDS: Acetaminophen 500 MG Tablet 1000 MG PO ×3 (03:48→22:12)
--- NOTE | 2018-01-03 03:58 | RAD_ITS ---
STUDY: X-RAY CHEST REASON FOR EXAM: Female, 17 years old. Dyspnea since section. TECHNIQUE: PA and lateral chest. COMPARISON: January 01, 2018. FINDINGS: The lungs are clear and expanded. Small pleural effusion in the posterior sulcus visualized on the lateral view. Normal size heart. Normal mediastinum and laura. Normal visualized pulmonary arteries. Normal visualized aortic arch and descending thoracic aorta. Normal visualized thoracic spine. Normal visualized ribs, clavicles, and shoulders. There is no demonstrated abnormality of the visualized soft tissue structures of the upper abdomen. RAD/Chest PA and Lateral IMPRESSION: Small pleural effusion visualized on the lateral view. No focal infiltrates. Electronically Signed: Jitendra Santoyo MD at 5:41 EDT , Service support ,
[2018-01-03] MEDS: Enoxaparin 40 MG/0.4 ML Syringe SC (05:41)
[2018-01-03] MEDS: Cefazolin 1 GM/50 ML BAG IV ×2 (06:34→15:26)
[2018-01-03] MEDS: Senna/Docusate Sodium 1 Tablet PO ×2 (07:58→22:10)
--- NOTE | 2018-01-03 08:41 | PN.OBGYN_ITS ---
Patient Problems: Active and Suspected Problems SROM (spontaneous rupture of membranes) (Acute) Maternal fever during labor (Acute) Chorioamnionitis in third trimester (Acute) Severe sepsis (Acute) Subjective: pain well controlled. + flatus, no BM. Herbie. regular diet. Ambulating. No dysuria. Denies breast pain. No CP/SOB/Palpitations. Did have fever/chills last night w/ temp. spike. - Physical Exam General: Alert, Cooperative, No apparent distress Abdomen: Soft, Distended - mildlym, softly, Tender - appropriately Extremities: Edema - 1+ Skin: Incision - bandage clean,d ry and intact Vital Signs Temp Pulse Resp BP Pulse Ox 99.1 F 98 18 101/54 L 98 01/03/18 08:01 01/03/18 08:01 01/03/18 08:01 01/03/18 08:01 01/03/18 08:01 Oxygen Delivery Method Room Air Weight: 95.4 kg Body Mass Index (BMI) 32.4 Intake and Output for Last 24 Hours 01/01/18 01/02/18 01/03/18 23:59 23:59 23:59 Intake Total 6303 / 6303 1331 / 1331 Output Total 1450 / 1450 2950 / 2950 Balance 4853 / 4853 -1619 / -1619 Microbiology Past 72 Hours 01/01/18 01:50 Influenza Types A,B Direct FA ([facility]) - Final Mucosa - Nose Laboratory Tests Past 24 Hrs 01/03/18 02:41 WBC 11.1 H RBC 2.93 L Hgb 9.1 L Hct 27.8 L MCV 94.9 MCH 31.1 MCHC 32.7 RDW 14.2 RDW Differential 47.0 H Plt Count 252 MPV 9.6 Immature Gran % (Auto) 0.700 Neut % (Auto) 79.9 H Lymph % (Auto) 14.9 L [place] % (Auto) 3.0 Eos % (Auto) 1.4 Baso % (Auto) 0.1 Absolute Neuts (auto) 8.9 H Absolute Lymphs (auto) 1.65 Total Counted Not Reportable Medical Necessity - Tobacco Use Smoking Status: Former smoker Assessment/Plan All Active Problems False labor after 37 completed weeks of gestation (Acute) Shortness of breath due to in third trimester (Acute) SROM (spontaneous rupture of membranes) (Acute) Maternal fever during labor (Acute) Chorioamnionitis in third trimester (Acute) Severe sepsis (Acute) Ectopic without intrauterine (Acute) POD#2 s/p primary c/s for acute chorio, nonreassuring FHTs. She continues to be on triple antibiotics. She had a fever spike last night. Intraoperatively, I had requested cultures of the placenta. Upon review of her microbiology I cannot find where those were sent. Blood cultures and urine culture being sent because of her temperature spike. Chest x-ray shows some pleural effusions, no evidence of pneumonia. We will continue triple antibiotics, will check neonates blood cultures as those will return before the patient's. There is still pending at this time. The infant is bottlefeeding and doing well. She continues to have some edema and third spacing of fluids. Would consider some Lasix tomorrow and allow patient to diurese on her own today unless she has increased shortness of breath or decreased O2 sats. Discussed with patient importance of increased ambulation as she has not ambulated in the hallways. Continue to use incentive spirometer.
[2018-01-03] MEDS: oxyCODONE 5 MG Tablet PO ×3 (11:45→22:12)
--- NOTE | 2018-01-03 13:01 | CASEMGMT ---
Social Work Assessment Labor and Delivery Unit Date of Intervention: 01/03/2018 Time of Intervention: 1115 Reason for Referral: maternal history of marijuana use; additional concerns - maternal history of depression, anxiety, first time mother, possible stress with father of baby. History obtained from: mother of baby (MOB) and medical record Household composition: MOB currently lives with alleged father of baby (FOB) Jamin Orozco, Jamin?s grandparents named Danitza and Raul César. Also, in the home are Jamin?s 15-year-old brother Ji and cousins Golden age 18 and James age 21. MOB reports has lived in this home for a ?couple of months.? MOB reports home situation is adequate and can continue to live in this home until [employer] housing is approved. Patient's parent/guardian status: MOB (age 17) and FOB (age 18) have been together for a year and a half. MOB reports FOB may have another child in [place], but this has never been proved by DNA. Holden, Francisco Orozco, is the first child for MOB and FOB together, the first for MOB. When asked about abuse with FOB, MOB?s response is that FOB yells a lot, tends to get loud when talking and doesn?t always have awareness of how loud he is being. MOB reports FOB ?embarrasses? MOB sometime with the yelling and loudness. MOB denies however that FOB has been physically abusive, nor has MOB ever felt fearful or scare with FOB. Medical History: MOB is G2, P0 to 1 after delivering Francisco. MOB reports one prior . Record indicates an ectopic in October 2016. MOB with care starting this at 10 weeks at [facility], having about 4 visits with last at 19 weeks. MOB then transferred care to [facility] at 22 weeks and had about 8 visits. MOB report that transferred care due to being upset over not getting another ultrasound when requested. MOB with positive drugs screens this and later in some negative screens. Baby Francisco was born at 7 pounds 11 ounces, Apgars 8 and 9 at 1 and 5 minutes of life. Francisco was born via STAT caesarian section due to non-reassuring heart tones. Note, MOB dealing with some infection and baby getting cultures due to concern for chorio. Educational Status: MOB reports has graduated high school, denies any issues with reading, writing, or learning comprehension. Denies ever having an IEP in school. 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 At this point MOB reports to be financially supported by a friend Virginia, who helps MOB buy personal items and things for the baby. MOB has food card through [employer] to buy food. Infant Supplies: MOB reports to have needed supplies including bassinet, crib, and car seat. MOB reports to have some clothing, diapers, wipes, and bottles. MOB still needs to get formula and planning to use WIC for this. Childcare/Caregiver(s): MOB. 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 Programs/Agencies Involved: MOB has food and medical through [employer], plans to apply for [place] assistance. MOB has WIC. [facility] . MOB is on the waiting list for [employer]. Children Services/Legal Issues: MOB denies any legal issues for self. MOB with history of children services as a minor. Through conversation MOB did disclose that FOB had a home arrest/or probation monitoring band on at one point, and due to FOB cutting the band the FOB went to rehab. MOB did not disclose or talk about why FOB had legal issues. Behavioral Health Issues: Mental Health History: MOB with history of depression and anxiety. MOB admits that had some high anxiety early on this early on, as MOB worried to due previous loss as well as worry about making sure could get things for the baby. MOB has also had some depression and has been considering counseling after the baby is born. MOB reports depression was quite intense for MOB after the loss in 2017, then some issues with FOB causing stress. MOB denies any thoughts of suicide during . Explored with MOB the noted ED presentation for Overdose. MOB reports this was an ?attention seeking? behavior trying to get FOB?s attention. MOB reports it was a stupid decision and not sure why would do such a thing. MOB reports was evaluated by crisis and recommended to outpatient counseling, which MOB reports did not follow up on. On a scale of 1-10 at this point, MOB unable to give a number regarding where mood is at. MOB reports only that ?happy? right now and happy to have the baby. Substance Use History: MOB denies every being a big drinking of alcohol and denies drinking during this . Chart indicates PB has a long history of smoking marijuana, starting at age 12. MOB reports that did smoke ?here and there? during the and that marijuana helped MOB?s stress level. MOB reports last use as the beginning of September 2017. MOB denies any other drug use during , including heroin, cocaine, methamphetamines, narcotic pills. MOB does endorse a history of trying cocaine and Adderall in the past, but not at all during . Family History: MOB?s mother with some form of mental health history. Record indicated PB?s mother and father both with history of substance issues at one point. Drug Screens: Positive maternal drug screens on 05-24-17 and 09-08-17. Negative on 11-03-17 and 01-01-18. Infant?s urine is negative, and meconium is pending. Family/Social Stressors: PB does not currently work and is reliant on friends for financial help. It appears PB has had some housing changes this , as living with a friend named Virginia and then a couple of months ago when KRYS got out of rehab MOB moved in with KRYS and his family. MOB reports can stay at current home until [facility] comes through, so that PB has a place for self and baby to live. KRYS was in rehab in [facility] due to getting in trouble for cutting off home arrest/probation band and when found being positive for marijuana. After social work inquiry, MOB admits KRYS may have also had Meth in his system. MOB reports that KRYS may have some type of mental health issues, due to being loud and irritable frequently. MOB reports KRYS is not currently in any treatment. MOB reports since KRYS found out of PB?s , that KRYS has not used substances and has been making some life changes. MOB with depression and anxiety history, not in currently treatment, though reports to be considering this. MOB reports that loss in 2017 was hard on MOB and that didn?t really deal with the loss. Support Systems: MOB identifies friend Virginia Candelario as a primary support person, MOB met this person earlier this year when Virginia offered MOB a ride to work and then started taking MOB to hoahaoism. MOB lived with Virginia for a short time during this . MOB reports Virginia helps MOB out financially. MOB reports additional support from MOB?s mother Maryana and FOB?s grandparents. MOB indicates will have help at home going. MOB reports to talk to FOB?s grandmother and Jamin when in need of emotional support. MOB also reports that can talk to her father sometimes, as he got out of residential 2 years ago and is someone MOB can talk to without worry that MOB?s business will be broadcasted to others. Depression/Shaken Baby/Safe Sleeping: MOB reports would never shake her baby and reports to know it is okay to set baby down if needed. Talked with MOB about safe sleeping. Introduced MOB to depression and anxiety, discussed risk factors and factors present for MOB. Reinforced with MOB importance for self-care. ASSESSMENT: MOB pleasant and cooperative with this feature writer. MOB talkative, sharing information with this feature writer, but eye contact only fair to minimal. Affect flattened. Mood is reported at this time to be happy. MOB stayed on task during conversation. MOB attended to baby during social work visit. MOB at first indicated that could not attend to baby until IV tubing was removed from MOB. When tubing removed, and baby started to cry, MOB held baby and ended feeding baby almost an entire bottle. MOB tried to burp baby at one point. MOB reports baby eats a lot and keeps wanting more. This feature writer noted that baby fussy and when fussy MOB addressed by feeding by bottle. Note, let nursing know that MOB fed baby almost an entire bottle and this feature writer found that MOB's mother also fed the baby a whole bottle this morning. Question present whether overfeeding could become an issue. MOB able to verbalize on own that FOB was getting loud yesterday, and that staff may have been concerned. Let MOB know that staff did approach this feature writer about FOB?s behaviors yesterday and that yes staff was concerned. MOB reports that it is FOB?s nature to be loud and that MOB does tell FOB when he is getting this way. MOB reports it has been hard since FOB could not be around to help, and that yesterday FOB was not feeling good, that FOB did not know what to do to care for baby and MOB couldn?t? get up and teach FOB. Talked with MOB about need to call children services due to substance exposure to baby in utero, that not sure stance children services will take with referral at this time, but that said agency looks at the big picture and with other risk factors present may decide to come out before meconium drug screen results are back. MOB asking to be notified when this feature writer knows children services intent. MOB asked if children service will be drug testing MOB and FOB. Educated that if a case is opened for investigation, that yes likely parents will be drug tested. MOB reports will take information on [facility] at this time, but not voicing interest in actual referral. MOB reports to be considering counseling now that baby is born. Safe Plan of Care for infant related to substance use: MOB reports that use of marijuana during was a way to help MOB?s nerves naturally and that moving forward may try counseling. MOB reporting intent to remain drug free of any substances, with plan to just focus on care of baby. This feature writer encouraged MOB that only sober persons should be caring for baby. PLAN: Will continue to follow MOB and baby during hospital stay. Revisit [facility] and counseling referrals with MOB. . Will return with community resource lists and depression packets. Will be calling children services, of which MOB is aware of. -PERRY Bo, DAVID
--- NOTE | 2018-01-03 20:15 | NURSING ---
vital signs obtained and pt has fever 103 orally. this RN educated pt to report any signs or symptoms of further infection. pt denies SOB, dizziness, pain. educated pt that this RN will be contacting physician manager fashion to obtain further orders. blood cultures and urine culture pending.
--- NOTE | 2018-01-03 21:13 | NURSING ---
spoke with Dr. Ash regarding elevated temp [address] Ash gave verbal orders for gentamicin q 24 hrs, discontinue cefazolin q 8 hrs and start vancomycin. Along with that, doctor stated to continue the clindamycin. No further needs at this time. Will educate pt on the change in antibiotic regimen.
--- NOTE | 2018-01-03 22:13 | NURSING ---
tylenol given for fever 104. not taken orally at this time d/t pt drinking ice water. antibiotics given.
[2018-01-04] VITALS (10 sets, daily range): BP systolic 104–126; BP diastolic 48–69; PULSE 86–118; RESP 16–20; TEMP 36.9–38.2; O2SAT 91–99
--- NOTE | 2018-01-04 01:16 | PCM.RX.CS ---
Consult Pharmacy has been consulted to manage selected antiobiotic: Vancomycin Type of Consult: Follow-up Labs: Sodium 141 mmol/L (136-145) 01/02/18 06:07 Potassium 3.8 mmol/L (3.5-5.1) 01/02/18 06:07 Chloride 110 mmol/L (98-107) H 01/02/18 06:07 Carbon Dioxide 23.0 mmol/L (21.0-32.0) 01/02/18 06:07 Anion Gap 8 (5-15) 01/02/18 06:07 BUN 11 mg/dL (7-18) 01/02/18 06:07 Creatinine 0.60 mg/dL (0.55-1.02) 01/02/18 06:07 Est GFR (MDRD) Af Amer 164 mL/min (>60) 01/02/18 06:07 Est GFR (MDRD) Non-Af 135 mL/min (>60) 01/02/18 06:07 BUN/Creatinine Ratio 18.2 RATIO (10-20) 01/02/18 06:07 Glucose 99 mg/dL (74-106) 01/02/18 06:07 Microbiology: Microbiology 01/01/18 01:50 Mucosa - Nose Influenza Types A,B Direct FA (HERSON) - Final Weight used for dosin.4 kg Estimated Creatinine Clearance: 146.66 Goal Trough: 10-15 mcg/mL Pharmacy Plan for Drug Dosing: Pharmacy Service will continue to monitor and adjust dosing as required. Medications Vancomycin HCl 1,500 mg/ (Sodium Chloride) 530 mls @ 250 mls/hr IV Q12H MARTIN Discontinued Medications Vancomycin HCl 1,500 mg/ (Sodium Chloride) 530 mls @ 250 mls/hr IV X1 ONE Stop: 01/03/18 23:37 Last Admin: 01/04/18 00:19 Dose: 250 mls/hr Follow-Up Labs: Trough Vancomycin Labs to be done on [date and time ordered]: 01/05 @ 1200
[2018-01-04] MEDS: Enoxaparin 40 MG/0.4 ML Syringe SC (05:52)
[2018-01-04] MEDS: oxyCODONE 5 MG Tablet PO ×3 (06:52→20:14)
[2018-01-04 07:04] LABS: Absolute Lymphocyte Count 1.74 X10^3/ul (0.83-4.51); Absolute Neutrophil Count 7.6 X10^3/uL (2.0-7.7); Basophil# 0.02 X10^3/uL; Basophil% 0.2 % (0-1); Eosinophil# 0.19 X10^3/uL; Eosinophils% 1.8 % (0-5); Hematocrit 28.6 % (37-47); Hemoglobin 9.4 g/dl (12.0-15.0); Lymphocyte # 1.74 X10^3/ul (4.0); Lymphocyte % 16.6 % (19-41); Mean Corp Hgb Conc 32.9 g/gl (32-36); Mean Corpuscular Hgb 30.2 pg (27.0-32.0); Mean Platelet Vol. 9.2 fl (6.2-12.0); Monocyte# 0.81 X10^3/uL; Monocyte% 7.7 % (0-10); Neutrophil # 7.58 X10^3/uL (2.7-7.7); Neutrophil % 72.3 % (47-70); Platelet Count 285 K/mm3 (150-450); RBC Distribution Width CV 14.1 % (11.6-14.6); RBC Distribution Width SD 47.4 fl (35.1-43.9); Red Blood Count 3.11 M/mm3 (4.2-5.4); White Blood Count 10.5 K/mm3 (4.4-11.0)
[2018-01-04 07:05] LABS: Differential Indicated SCAN CRITERIA MET; POSITIVE COUNT NO; POSITIVE DIFFERENTIAL NO; POSITIVE MORPHOLOGY YES
--- NOTE | 2018-01-04 08:48 | CT_ITS ---
STUDY: CT ABDOMEN AND PELVIS WITH CONTRAST REASON FOR EXAM: Female, 17 years old. Fever, sepsis and tachypnea following a . Shortness of breath. RADIATION DOSAGE (If Supplied By Facility): CTDIvol = ( 12.17 ) mGy, DLP = ( 2060.49 ) mGycm TECHNIQUE: Transaxial images were obtained from the dome of the diaphragm to the symphysis pubis without oral contrast. 100CC ml of Isovue 370 contrast was administered. Sagittal and coronal images were reconstructed. Individualized dose optimization techniques were used for this CT. COMPARISON: Comparison is made with prior study dated October 20, 2016. FINDINGS: Mild degree of increased markings at the lung bases suggestive of either linear atelectasis and/or early infiltrates. Small bilateral pleural effusions. The visualized portions of the heart are within normal limits. Normal liver. Normal gallbladder and extrahepatic biliary system. Normal spleen. Normal pancreas. Normal bilateral adrenal glands. Normal right kidney. Normal left kidney. Normal visualized stomach. Normal small intestine. Normal colon. The appendix is visualized and appears normal. Normal abdominal aorta. Normal inferior vena cava. Normal retroperitoneum. Normal urinary bladder. The uterus is enlarged in keeping with post gravid uterus. There is thickening of the endometrium. Soft tissue edema is seen within the subcutaneous fat deep to the site of the section. Small air bubbles are seen within the rectus abdominal muscles in comparison with postoperative changes. No focal abscess is seen. 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 CT/Abdomen/Pelvis W IV Cont ONLY IMPRESSION: Bibasilar atelectasis and/or early infiltrates with small bilateral pleural effusions. Postoperative changes in the anterior abdominal wall as described. Enlarged uterus with thickening of the endometrium in keeping with a postgravid uterus. Electronically Signed: Hany Ayon MD at 10:17 EDT Tel [phone], Service support ,
--- NOTE | 2018-01-04 08:48 | CT_ITS ---
STUDY: CTA CHEST REASON FOR EXAM: Female, 17 years old. Sepsis, fever, tachypnea and shortness of breath. Recent postoperative . RADIATION DOSAGE (If Supplied By Facility): CTDIvol = ( 12.17 ) mGy, DLP = ( 2060.49 ) mGycm TECHNIQUE: The examination was performed with the intravenous administration of 100CC ml of Isovue 370 contrast material. Post-processing of the angiographic images was performed, with multiplanar reformation and 3D reconstruction. Individualized dose optimization techniques were used for this CT. COMPARISON: Comparison is made with prior chest radiograph from January 03, 2018. FINDINGS: Normal enhancement of the main pulmonary artery and right and left pulmonary arteries. Normal enhancement of the bilateral peripheral pulmonary arteries. There is no demonstrated pulmonary embolism. Normal thoracic aorta and visualized great vessels. There is no demonstrated aortic dissection. Normal heart and pericardium. Normal mediastinum. Normal hilar regions. Normal visualized trachea and bronchi. The lungs are well expanded. Small bilateral pleural effusions with underlying infiltration and/or atelectasis at the lung bases. Normal chest wall structures. Normal osseous structures. Normal visualized upper abdomen. CT/CTA Chest W/WO Contrast IMPRESSION: Small bilateral pleural effusions with underlying infiltration and/or atelectasis. Electronically Signed: Hany Ayon MD at 10:22 EDT Tel [phone], Service support ,
[2018-01-04] MEDS: Acetaminophen 500 MG Tablet 1000 MG PO (10:41)
[2018-01-04] MEDS: Senna/Docusate Sodium 1 Tablet PO ×2 (10:42→22:56)
[2018-01-04] MEDS: 0.9% Saline Lock 10 ML Syringe IV ×2 (11:46→21:34)
--- NOTE | 2018-01-04 12:29 | CASEMGMT ---
Social Work Labor and Delivery Unit Received call from Lizeth East at [facility] ([facility]) reporting to be the assigned worker to referral this senior grant writer called in. Lizeth plans to come and see mother of baby (MOB) tomorrow, 01.05.2018, at hospital. Presented to MOB's room. MOB sitting in bed and baby's paternal great grandmother holding baby on bed, initially the grandmother appearing to be sleeping while holding the baby but the woman did stir and sat up and participated in conversation when this senior grant writer inquired whether father of baby has been in yet and may be signing certificate. The visitor indicated that FOB has to go and get an ID. MOB reports to be feeling okay. Provided MOB with this senior grant writer's contact information should MOB want to call in and check on status of meconium drug screen, before this senior grant writer is able to call MOB (at MOB's request). Provided [facility] resources packet and information on depression. MOB accepting of information. MOB affect flattened affect today. Let MOB know that this senior grant writer can come back later to talk about other things, that MOB can call this senior grant writer when it may be a good time. Want to discuss children services, counseling, referrals but not wanting to discuss in detail with visitor present. Plan: Continue to follow. [facility] planning to visit with MOB tomorrow morning. -MARYLOU Bo, [employer]REGL[employer] G[employer]
[2018-01-04 14:14] LABS: Gentamicin, Random 0.8 ug/mL
--- NOTE | 2018-01-04 16:29 | CASEMGMT ---
Social Work Labor and Delivery Unit Attempted to meet with mother of baby (MOB) again this afternoon to review update about children services, revisit counseling and [facility] referrals. The baby's paternal grandmother still present, holding baby. Asked visitor to leave so that can review information with MOB. The visitor then interjected, asking MOB if MOB wants the visitor to leave and whether MOB wants someone present as this is MOB's right. MOB sat on bed and said I guess about the visitor remaining in the room. The visitor said it is up to you, to which loan underwriter agreed but stated to MOB directly that this loan underwriter is unsure what other know and do not know so this is why asking visitor to leave. MOB hesitated for a moment, but voiced that it is okay to have visitor remain. As soon as MOB stated this, the father of baby (FOB) walked in with an older woman, maybe the FOB's grandmother. MOB asked if this loan underwriter can just come back later. This loan underwriter agreed but let MOB know may not be until tomorrow, earlier in the morning. Plan: Children services will be seeing MOB in the morning. This loan underwriter will try to get in to see MOB before children services comes so as to prepare MOB. -MARYLOU Bo, PLASTIC DIE MAKER APPRENTICE
--- NOTE | 2018-01-04 21:04 | PCM.PN.BLA ---
Progress Note Pain well controlled. Afebrile throughout today. Highest temp was 100.1 Fahrenheit Reviewed CAT scan findings Discussed with the patient that febrile spikes are not uncommon after a severe infectious episode. At this point cultures have not been helpful and helping us target our antimicrobial therapy. We will continue current antibiotics until she is afebrile for at least 24-48 hours. Will likely discharge home on antibiotics as well. Will reevaluate in the morning.
[2018-01-04] MEDS: Bisacodyl 10 MG Suppository RECTAL (22:56)
[2018-01-04] MEDS: Naproxen 250 MG Tablet PO (23:54)
[2018-01-05] VITALS (7 sets, daily range): BP systolic 108–123; BP diastolic 60–74; PULSE 80–108; RESP 16–18; TEMP 36.7–37.8; O2SAT 97–98
[2018-01-05] MEDS: oxyCODONE 5 MG Tablet PO ×3 (02:15→15:00)
[2018-01-05] MEDS: 0.9% Saline Lock 10 ML Syringe IV ×5 (03:10→15:01)
[2018-01-05 06:59] LABS: Hematocrit 26.1 % (37-47); Hemoglobin 8.8 g/dl (12.0-15.0); Mean Corp Hgb Conc 33.7 g/gl (32-36); Mean Corpuscular Hgb 31.2 pg (27.0-32.0); Mean Corpuscular Volume 92.6 fL (81-99); Mean Platelet Vol. 9.4 fl (6.2-12.0); Platelet Count 341 K/mm3 (150-450); RBC Distribution Width CV 13.6 % (11.6-14.6); RBC Distribution Width SD 45.1 fl (35.1-43.9); Red Blood Count 2.82 M/mm3 (4.2-5.4); White Blood Count 15.2 K/mm3 (4.4-11.0)
--- NOTE | 2018-01-05 07:00 | NURSING ---
0686 pt refusing lovnenox informed states she will talk with pt.
[2018-01-05 07:02] LABS: Scan Indicated on CBC? Y/N NO
--- NOTE | 2018-01-05 07:34 | DCINST_ITS ---
Discharge Diet: No Restrictions Discharge Activity: Return to Normal Activity, May Not Drive - for 2 weeks, May not drive while taking narcotic pain medications., May Shower, May Take a Tub Bath - in 7 days. May resume sexual activity in: 4-6 weeks Lifting Restrictions: 20 pounds Additional Activity Instructions:: Nothing in the vagina for 4-6 weeks. You may return to work/school in 6 weeks. Call your doctor if your incision/area has: Continuous Slow Oozing, Sudden Increased Bleeding, Increased Pain/ Swelling, Increased Redness, Foul Smelling Discharge Call your doctor if you observe: Fever of 101 or Higher, Using more than one pad per hour - for 2 hours Suture Line Care: Avoid Pulling/Pushing, Avoid Pinching/Bending Remove Dressing in (days):: 1 - 01/07 or 01/07/18 Cleanse incision/area with: Soap & Water, - - Dry the incision well after you shower, use a blow dryer if needed Additional Instructions: If you experience any of the following, contact your healthcare provider. * Bleeding that soaks a pad every hour for 2 hours * Fever 100.4 or higher * Unrelieved incision or abdominal pain * Swelling, redness, discharge or bleeding from your incision or episiotomy site * Your incision begins to separate * Problems urinating (including inability to urinate or burning while urinating). * Visual changes * Severe headache * Flu-like symptoms * Pain or redness in one of both of your breasts * Pain, warmth, tenderness or swelling in your legs, especially the calf area * Frequent nausea and vomiting * Symptoms of depression or anxiety If you experience any of the following, call 911 or go to the nearest Emergency Room. * Chest pain * Problems breathing * Seizure activity * Partial or complete paralysis of a body part, slurred speech, weakness or drooping of the face, or a sudden inability to walk or hold your balance Allergies/Adverse Reactions: Allergies diphenhydramine [From Benadryl] Allergy (Verified 12/30/17 00:38) Unknown Penicillins Allergy (Verified 12/30/17 00:38) Unknown codeine Adverse Reaction (Verified 12/31/17 23:56) Unknown Medications to take at Discharge Vit Calc,Iron,Folic [ Vitamins] 1 each PO DAILY 07/09/17 Amoxicillin/Potassium Clav [Augmentin 875-125 Tablet] 1 each PO BID #14 tablet 01/05/18 Docusate Sodium [Colace] 100 mg PO BID PRN PRN #30 capsule 01/05/18 Ibuprofen [Motrin] 800 mg PO TID PRN PRN #60 tablet 01/05/18 Oxycodone HCl/Acetaminophen [Percocet 5/325] 1 - 2 tablet PO Q8 PRN 5 Days #28 tablet 01/05/18 The following prescriptions were given: Docusate Sodium [Colace] 100 mg PO BID PRN PRN #30 capsule PRN Reason: Constipation Ibuprofen [Motrin] 800 mg PO TID PRN PRN #60 tablet PRN Reason: Pain Oxycodone HCl/Acetaminophen [Percocet 5/325] 1 - 2 tablet PO Q8 PRN 5 Days #28 tablet PRN Reason: Pain Amoxicillin/Potassium Clav [Augmentin 875-125 Tablet] 1 each PO BID #14 tablet Follow-Up: Call to make an appointment with your doctor for an incision check in 1-2 weeks. You will also need a 6 week post- follow up appointment. Test results from this visit will be discussed in further detail at your follow- up appointment, if applicable. Please Follow Up With: Carmela Dietz MD - Call to make an appointment for an incision check in 1-2 [phone] When: You will need a post check in 6 weeks. Primary Care Physician: Juve Brown MD [Primary Care Provider] -
--- NOTE | 2018-01-05 07:58 | PN.OBGYN_ITS ---
Patient Problems: Active and Suspected Problems SROM (spontaneous rupture of membranes) (Acute) Maternal fever during labor (Acute) Chorioamnionitis in third trimester (Acute) Severe sepsis (Acute) Subjective: Patient denies fevers or chills. Pain is controlled with medications. She is tolerating regular diet. Average lochia. No nausea or vomiting. Patient denies chest pain or shortness of breath. She states she feels much better overall. - Physical Exam General: Alert, Cooperative, No apparent distress Lungs: Normal air movement Cardiovascular: Regular rate Abdomen: Soft, Non-Distended, Tender - less than yesterday Extremities: Edema - 1+ Skin: Incision - bandage clean, dry and intact Vital Signs Temp Pulse Resp BP Pulse Ox 97.8 F 80 16 107/62 97 01/05/18 03:00 01/05/18 03:00 01/05/18 03:00 01/05/18 03:00 01/05/18 03:00 Oxygen Flow Rate (L/min) 2 Oxygen Delivery Method Room Air Weight: 95.4 kg Body Mass Index (BMI) 32.4 Intake and Output for Last 24 Hours 01/03/18 01/04/18 01/05/18 23:59 23:59 23:59 Intake Total 1348 / 1348 Balance 1348 / 1348 Microbiology Past 72 Hours 01/03/18 08:30 Urine Culture - Preliminary Urine, Clean Catch Culture exhibits no growth. Laboratory Tests Past 24 Hrs 01/04/18 01/05/18 11:55 06:35 WBC 15.2 H RBC 2.82 L Hgb 8.8 L Hct 26.1 L MCV 92.6 MCH 31.2 MCHC 33.7 RDW 13.6 RDW Differential 45.1 H Plt Count 341 MPV 9.4 Random Gentamicin 0.8 Medical Necessity - Tobacco Use Smoking Status: Former smoker Assessment/Plan All Active Problems False labor after 37 completed weeks of gestation (Acute) Shortness of breath due to in third trimester (Acute) SROM (spontaneous rupture of membranes) (Acute) Maternal fever during labor (Acute) Chorioamnionitis in third trimester (Acute) Severe sepsis (Acute) Ectopic without intrauterine (Acute) 17 YOF s/p primary c/s for nonreassuring fhts w/ acute chorio and acute severe sepsis, now improved Chronic antepartum iron deficiency anemia with superimposed mild acute blood loss anemia. Resume iron at discharge and continue vitamins. Chorioamnionitis and severe sepsis, improving on current IV antibiotic therapy. Patient had another temperature spike to 100.7 degrees last night. While this is a less intense fever, it is still a fever. Like to continue the IV antibiotics until tomorrow. So far, blood cultures and urine cultures have not been helpful to direct therapy. Cultures on the were negative. At that time she would be afebrile for 36 hours if she does not spike again tonight. I discussed with her at minimum I would like her to stay until she is 24 hours afebrile. Her white blood cell count trended up today. However, clinically she looks improved and her abdomen is less tender. She continues to have some mild tachycardia. Infant is doing well. Medical student and I rounded on patient. Her significant other is present and when I arrive in the room is making statements such as [facility] just wants to make more money off of her, it is our fault she has infection. After six days we don't even know what caused an infection and that he knows we can treat it with oral antibiotics and she will be fine. He would not let me finish sentances and statements at time. He told her to just tell us to get her papers and leave, that we were just trying to persuade her. I told them I would give them some time to discuss the options, if she went home it would be against medical advice. I then continued the conversation w/ Latisha Apodaca RN present regarding these things. Her significant other continue to state that we just wanted to poke and prod Chelsie and torture her. And that she just need to go home and let her body rest and she would be fine. I d/w Chelsie that I was just trying to do what was medically indicated for her to keep her healthy and try to decrease the chances of her coming back with an ongoing infection. I reiterated the fact that she was septic with hypotension and I had consulted an ICU attending due to her acute illness. In addition, we reviewed that with severe illnesses temperature spikes occur cyclically and sporadically and often not persistently. Patient was willing to stay until 8 pm tonight, boyfriend pushing her to leave. I made it clear the decision was hers as to discharge plan, if leaves before 24 hrs afebrile ( really I would like her to stay until tomorrow am), she will have to sign out against medical advise.
[2018-01-05] MEDS: Docusate Sodium 100 MG Capsule PO (08:32)
--- NOTE | 2018-01-05 09:25 | CASEMGMT ---
Social Work Labor and Delivery Unit Received report from Latisha Riggs RN who reports that father of baby (FOB) in room today, upset, pushing for mother of baby (MOB) to leave today. This script writer presented to the room and MOB alone, holding baby. Informed MOB that [facility] ([facility]) planning to come to hospital today to see MOB and baby. MOB asked if this means a case is being opened. Educated this means a case is opened for investigation, and that CS to follow with MOB, make sure things are going okay for MOB and for baby. MOB asked if case will be closed if no concerns after talking to MOB. Informed MOB that case will not be closed today, that [facility] likely will be following MOB for a time to assure that needs are being met at home. Inquired how MOB is feeling and how FOB is doing, that this script writer was informed that FOB may not have been the happiest today. MOB stated that FOB was fussing at the doctor today. Inquired whether MOB has thought at all about a referral to counseling. MOB reports has not but has this script writer's number to call if needed. Educated MOB that if MOB is at home and decides that wants counseling MOB can call on own, but that this script writer able to assist now if this would help MOB. MOB maintains that not ready to commit to mental health referral at this point. Inquired about [facility]. MOB also declines are referral to [facility] at this time. Minimal to no eye contact with this script writer, MOB's affect observed to be flat. MOB stating that feels better than earlier this admission. This script writer approached by Jennifer Riggs RN reporting that MOB wants to leave before 1999 today, and therefore would be AMA. Per RN, the doctor does prefer MOB to stay until tomorrow, but would agree to a discharge after 1999 today. [facility] Lizeth East to unit. Updated [facility]. Presented to MOB's room with [facility] Cruzito. Alleged FOB Jamin Orozco in the room on couch. MOB sitting on bed and holding baby. This script writer broached the reports that MOB wants to leave before 1999 today. MOB reports to be torn, as is worried the insurance will not pay if leaves AMA and that cannot afford to pay the bill without insurance. Talked with MOB that it is a risk the insurance will not pay, but also not a guarantee of nonpayment, that when to go home is MOB's decision. Encouraged MOB to consider spending a few more hours of monitoring, getting medicine and help from staff, going home when approved by doctor, and to consider possible alternatives/risks should MOB go home AMA, before MOB makes decision. MOB reports to be learning towards staying. FOB interjecting dissatisfaction with how MOB is treated, perception that MOB is being poked with IV's, and making allegations that staff have been yelling at [facility] for asking questions. FOB expressing support of MOB going home today, before 1999. This script writer broached that before the baby is discharged, MOB and FOB need to get baby a pediatric follow up. MOB still unsure, and FOB reports will just call his old sales and merchandising associate for an appointment. This script writer checked with pediatric hospitalist Dr. Hernandez about follow up and physician indicates that follow up on Monday would be okay. FOB interjected and asked that since FOB is on certificate, can FOB just take baby out today and take baby to sales and merchandising associate today. Informed FOB that typically recommendation is for follow up in 1-3 days after discharge, so this would not be a follow up for today. This script writer asked for clarification for MOB's intentions about staying until 1999 or going before. MOB voiced to FOB that doesn't want FOB mad and knows FOB wants to go, but that can't afford the bill if insurance does not pay. FOB interjected that FOB's family has millions so could pay for MOB's hospital bills. MOB did make decision that feels should stay today, so voices agreement to stay until 1999. Marcelino Rodriguez RN. Note, this script writer present when [facility] talked with MOB and FOB, addressing concerns as to reason for [facility] case at this time. [facility] set appointment with family to meet at home at 1330 on Monday01-08-18. During [facility] interview, MOB and FOB report to now have formula. MOB reports that MOB's grandmother brought some formula yesterday. Plan: MOB and baby to home with [facility] to see family at home on 01.08.2018. MOB declines [facility] and counseling referrals; reportedly connected with WIC and [facility] already. MOB has been given packet on depression and general resources list of [facility]. Will be monitoring for meconium drug screen results; results then to [facility] which will be in direct relation to original reprot made. -MARYLOU Bo, WRECKING CAR DRIVER
[2018-01-05] MEDS: Naproxen 250 MG Tablet PO (12:06)
[2018-01-09 15:09] LABS: Pathology Specimen OB SEE PATHOLOGY REPORT
--- NOTE | 2018-01-10 08:49 | PCM.DC.SUM ---
Discharge Date and Diagnosis Date of Admission: 01/01/18 Date of Discharge: 01/05/18 Hospital Course and Treatment Summary of Care Provided: The patient is a 17 year old female admitted in early labor with suspected prolonged rupture of membranes developed a fever and acute chorioamnionitis. She was allowed to labor, but despite resuscitative measures had persistent category heart tone tracings and decision was made to proceed with section for nonreassuring status remote from delivery. She was 5 cm. The section was performed without difficulty. Postoperatively the patient became acutely hypotensive. He been started on antibiotics before the . These were continued after the . Acute blood loss anemia as a source for the hypotension was ruled out. Patient was diagnosed with acute severe sepsis. An ICU consultation was obtained. Patient continued to intermittently spike fevers. On postoperative day #3 she had some tachypnea, persistent tachycardia and was still requiring oxygen supplementation when she was dozing. A CAT scan was done that ruled out any intra-abdominal abscess or pulmonary embolus or pneumonia. By postoperative day #4, her cultures in the baby's cultures all remain negative. She had been afebrile for 24 hours and was adamant that she wanted to go home. I recommended that she stay overnight and continue the IV antibiotics until 7 AM. Patient declined this and desired to go home on 10:26 PM. She understood to return if she had any fever spikes, chills, worsening pain, chest pain or shortness of breath. She was discharged home on Augmentin and with routine pain prescriptions. She is to follow-up in our office in 1 in 6 weeks or as needed. [] - Physical Exam Vital Signs Temp Pulse Resp BP Pulse Ox 98.3 F 80 18 110/60 98 01/05/18 20:15 01/05/18 20:15 01/05/18 20:15 01/05/18 20:15 01/05/18 08:30 Oxygen Flow Rate (L/min) 2 Oxygen Delivery Method Room Air Weight: 95.4 kg Body Mass Index (BMI) 32.4 Microbiology Past 72 Hours 01/03/18 05:04 Blood Culture - Final Blood Culture (Wb) - Anticubital Right No growth in 5 days. 01/03/18 05:00 Blood Culture - Final Blood Culture (Wb) - Anticubital Left No growth in 5 days. Discharge Diet: No Restrictions Discharge Activity: Return to Normal Activity, May Not Drive - for 2 weeks, May not drive while taking narcotic pain medications., May Shower, May Take a Tub Bath - in 7 days. May resume sexual activity in: 4-6 weeks Additional Activity Instructions:: Nothing in the vagina for 4-6 weeks. You may return to work/school in 6 weeks. Call your doctor if your incision/area has: Continuous Slow Oozing, Sudden Increased Bleeding, Increased Pain/ Swelling, Increased Redness, Foul Smelling Discharge Call your doctor if you observe: Fever of 101 or Higher, Using more than one pad per hour - for 2 hours Suture Line Care: Avoid Pulling/Pushing, Avoid Pinching/Bending Remove Dressing in (days):: 1 - 01/07 or 01/07/18 Cleanse incision/area with: Soap & Water, - - Dry the incision well after you shower, use a blow dryer if needed Home Medications: Medications to take at Discharge Vit Calc,Iron,Folic [ Vitamins] 1 each PO DAILY 07/09/17 Amoxicillin/Potassium Clav [Augmentin 875-125 Tablet] 1 each PO BID #14 tablet 01/05/18 Docusate Sodium [Colace] 100 mg PO BID PRN PRN #30 capsule 01/05/18 Ibuprofen [Motrin] 800 mg PO TID PRN PRN #60 tablet 01/05/18 Following Prescrptions Were Given to Patient: Docusate Sodium [Colace] 100 mg PO BID PRN PRN #30 capsule PRN Reason: Constipation Ibuprofen [Motrin] 800 mg PO TID PRN PRN #60 tablet PRN Reason: Pain Amoxicillin/Potassium Clav [Augmentin 875-125 Tablet] 1 each PO BID #14 tablet Primary Care Physician: Juve Brown MD [Primary Care Provider] - Please Follow Up With: Carmela Dietz MD - Call to make an appointment for an incision check in 1-2 [phone] When: You will need a post check in 6 weeks. Medical Necessity - Tobacco Use Smoking Status: Former smoker Meaningful Use Info Meaningful Use Diagnoses (Choose all that apply): None applicable
== END 2018-01-05 20:15 | disposition home or self-care (01) | DRG 540 ==
LOC: WPOUT 01:59
PROVIDERS: Internal Medicine Critical Care Medicine; Obstetrics & Gynecology; Admitting Provider Obstetrics & Gynecology; Family Provider Family Medicine; PCP Family Medicine; Referring Provider Obstetrics & Gynecology; Visit Provider Obstetrics & Gynecology
DX: O76 Abnormality in fetal heart rate and rhythm complicating labor and delivery (principal); O41.1230 Chorioamnionitis, third trimester, not applicable or unspecified; O42.02 Full-term premature rupture of membranes, onset of labor within 24 hours of rupture; O69.81X0 Labor and delivery complicated by cord around neck, without compression, not applicable or unspecified; O99.824 Streptococcus B carrier state complicating childbirth; O99.324 Drug use complicating childbirth; F12.90 Cannabis use, unspecified, uncomplicated; O99.214 Obesity complicating childbirth; O99.354 Diseases of the nervous system complicating childbirth; O47.1 False labor at or after 37 completed weeks of gestation; O99.03 Anemia complicating the puerperium; D62 Acute posthemorrhagic anemia; G47.33 Obstructive sleep apnea (adult) (pediatric); Z3A.39 39 weeks gestation of pregnancy; Z37.0 Single live birth; Z87.891 Personal history of nicotine dependence; Z87.59 Personal history of other complications of pregnancy, childbirth and the puerperium
CPT/HCPCS: 36415; 59025; 59050; 71045; 71046; 71275; 74177; 80048; 80053; 80170; 80307; 81001; 83605; 83615; 83735; 84100; 84112; 85025; 85027; 85384; 86850; 86900; 87040; 87086; 87804; 88307; 93005; 94762; 99218; J7040; J7120; Q9967; A4216; G0378; J2405

== ENCOUNTER 2018-06-24 14:55 | Emergency (ER) | payer MEDICAID, SELFPAY ==
[2018-06-24 14:56] VITALS: PULSE 95; RESP 16; TEMP 36.8; O2SAT 97; BMI 28.1
[2018-06-24 15:27] VITALS: BP 114/66; PULSE 91; RESP 16
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
[2018-06-24] MEDS: Ibuprofen 400 MG Tablet 800 MG PO (17:22)
== END 2018-06-24 17:23 | disposition home or self-care (01) ==
PROVIDERS: Emergency Provider Emergency Medicine; Family Provider Family Medicine; PCP Family Medicine
DX: S00.03XA Contusion of scalp, initial encounter (principal); S60.222A Contusion of left hand, initial encounter; S10.91XA Abrasion of unspecified part of neck, initial encounter; Y04.2XXA Assault by strike against or bumped into by another person, initial encounter; Y93.89 Activity, other specified; Y92.9 Unspecified place or not applicable; Z72.0 Tobacco use
CPT/HCPCS: 70450; 73130; 99283

== ENCOUNTER 2018-08-16 14:41 | Emergency (ER) | payer MEDICAID, SELFPAY ==
[2018-08-16 14:41] VITALS: BP 101/52; PULSE 115; RESP 14; TEMP 36.8; O2SAT 97; BMI 29.7
--- NOTE | 2018-08-16 15:27 | ED.VISSUMM ---
- ER Visit Summary Date of Service: 08/16/18 Chief Complaint: [] History of Present Illness: The patient is a 18 F [] Physical Examination: [] Test Results: [] Emergency Department Course and Treatment: [] Treatment Plan: [] Disposition: [] Impression: [] This note was generated with [employer] dictation software. It may contain incorrect words, spelling, and punctuation that were not noted in review of the chart prior to signing ED Disposition - Plan for ED Patient: Referrals: Juve Brown MD [Primary Care Provider] -
[2018-08-16] MEDS: predniSONE 20 MG Tablet 40 MG PO (15:32)
--- NOTE | 2018-08-16 15:32 | ED.DCSUM_ITS ---
- ER Visit Summary Date of Service: 08/16/18 Chief Complaint: [] History of Present Illness: The patient is a 18 F [] Physical Examination: [] Test Results: [] Emergency Department Course and Treatment: [] Treatment Plan: [] Disposition: [] Impression: [] This note was generated with [employer] dictation software. It may contain incorrect words, spelling, and punctuation that were not noted in review of the chart prior to signing ED Disposition - Plan for ED Patient: Referrals: Juve Brown MD [Primary Care Provider] -
--- NOTE | 2018-08-16 15:32 | ED.VIS.GEN ---
History of Present Illness Chief Complaint: Rash Detail of Chief Complaint: Patient reports she was walking through a weedy area 2 days ago and has a p Informant: Patient Onset: Days - 2 Current Severity: Mild Narrative: Puritic rash posion kristine exposure 2 days ago, 4m OB The patient is a 18 F [] exposed as above, no other complaints, no meds, fever cough or abd pain or bleeding, was walking in weedy area no problems with Prior similar symptoms: Yes Recent Illness/Hospitalization: No Past Medical History - Allergies and Home Meds Allergies/Adverse Reactions: Allergies diphenhydramine [From Benadryl] Allergy (Verified 08/16/18 14:45) Unknown Penicillins Allergy (Verified 08/16/18 14:45) Unknown codeine Adverse Reaction (Verified 08/16/18 14:45) Unknown Primary Care Physician: Juve Brown MD [Primary Care Provider] - Past Medical History: - - Patient reports she had a child 7 months ago she is currently 4 months she has no complaints her health is been very good she denies any significant past history Surgical History: no surgical history Lives: With Family Smoking Status: Current some day smoker - Family History Maternal Family History: Reports: No pertinent history Paternal Family History: Reports: No pertinent history Review of Systems General: Reports: - - Her only complaint was itching. Denies: Chills, Fever, Sweats Eyes: Denies: Visual changes - bilaterally, Diplopia ENT: Denies: Rhinorrhea, Sore throat Cardiovascular: Denies: Chest pain, Palpitations Respiratory: Denies: Dyspnea, Cough, Dyspnea on exertion Gastrointestinal: Denies: Abdominal pain, Nausea, Vomiting, Diarrhea, Melena, Hematochezia Genitourinary: Denies: Dysuria, Hematuria, Frequency Musculoskeletal: Denies: Back pain, Extremity Pain Skin: Reports: Rash - Exposed to weeds about 2 days ago. Denies: Wounds Neurological: Denies: Headache, Weakness, Numbness Physical Exam Vital Signs/Narrative: Vital Signs Temp Pulse Resp BP Pulse Ox 08/16/18 14:41 98.2 F 115 H 14 101/52 L 97 Inital Vital Signs reviewed: Yes General: Well nourished, Well developed, No Acute Distress Head: Normocephalic, Atraumatic Eyes: Perrl, EOMI ENT: Moist mucous membranes, No rhinorrhea Neck: Supple, Nontender Cardiovascular: Regular rate, Regular rhythm, No murmurs Respiratory: No distress, CTA bilaterally, Chest nontender Abdomen: Soft, Nontender, Normal bowel sounds. Negative for: Nondistended - The patient reports she is 4 months she has no abdominal pain or bleeding no complications from the Back: Nontender, Normal Inspection Extremities: Nontender, No edema Skin: Normal color, Rash - Patient has scattered hives throughout her body she has some hives over the left upper lid the eyes unremarkable her airway and the rest of her entire body otherwise unremarkable showed no other complaints no petechia purpura skin breakdown blisters, - - She has scattered diffuse hives to her body some linear rash consistent with poison kristine, she has a area of hives to the left upper lid her eyes are otherwise unremarkable her vision is normal her airway for the mouth mucous members are unremarkable she is been in no new medications has no other complaints Neurological: Alert, Oriented x3, Cranial nerves II-XII grossly intact, Normal Strength, Normal Sensation Psychological: Normal affect, Normal Mood Diagnostic/Tx/Re-eval - Medical Decision Making Had a long conversation with the patient she indicates this issue was related to the weeds a poison kristine she was exposed to no other complaints at this time she has had poison kristine before she is been using calamine lotion with no improvement her is uncomplicated, she has had steroids before without complications or issues, she is given prednisone 40 mg p.o., 1% hydrocortisone cream to the other areas that are bothering her such as a left upper lid and have asked her to avoid getting that medication her eye she will follow-up with her doctors and outpatient providers in a day or 2 return for change in symptoms ED Disposition - Plan for ED Patient: Diagnosis: Poison kristine dermatitis Instructions: ED Dermatitis Poison Kristine Prescriptions: Hydrocortisone 1% Crm [Hytone] 1 applic TOPICAL DAILY #7 tube Referrals: Juve Brown MD [Primary Care Provider] -
[2018-08-16 15:58] VITALS: RESP 18
== END 2018-08-16 15:59 | disposition home or self-care (01) ==
LOC: ED 15:38
PROVIDERS: Emergency Provider Emergency Medicine; Family Provider Family Medicine; PCP Family Medicine
DX: O99.89 Other specified diseases and conditions complicating pregnancy, childbirth and the puerperium (principal); L23.7 Allergic contact dermatitis due to plants, except food; O99.332 Smoking (tobacco) complicating pregnancy, second trimester; Z3A.00 Weeks of gestation of pregnancy not specified
CPT/HCPCS: 99283

== ENCOUNTER 2019-01-27 17:50 | Inpatient (IN) | payer MEDICAID, SELFPAY ==
--- NOTE | 2019-01-25 12:02 | HP.PCM_ITS ---
<Carmela Dietz - Last Filed: 01/25/19 12:02> History and Physical Date of Admission: 01/29/19 HPI: The patient is a 18 year old female presenting for pre-operative visit. She is scheduled for?c-s, for?39 weeks, h/o previous c/s on?01/29/19. ??Procedure discussed along with risks, benefits and complications. ?Other alternatives discussed for management. Consent form signed??Yes.? PAST MEDICAL HISTORY PAST MEDICAL HISTORY Diagnosis Date ? Anemia during in third trimester 11/19/2018 ? Ectopic 10/2016 ? Hypertension ? ? ? PAST SURGICAL HISTORY PAST SURGICAL HISTORY Procedure Laterality Date ? DELIVERY ONLY ? 01/01/2018 ? C/S low transverse ? SALPINGECTOMY Right 10/2016 ? ectopic ? ? CURRENT MEDICATIONS Current Outpatient Medications Medication Sig Dispense Refill ? ferrous sulfate 325 mg (65 mg iron) tablet Take 1 tablet by mouth twice daily. 60 tablet 3 ? Prenat Vit Comb.11-Fuzd-SN-DHA (VITAFOL-OB+DHA) 65-1-250 mg cmpk Take 1 tablet by mouth once daily. 30 Each 12 ? loratadine-pseudoephedrine ER (CLARITIN-D 12 HOUR) 5-120 mg per tablet Take 1 tablet by mouth twice daily as needed for Cold/Allergy Symptoms. 30 tablet 0 ? No current facility-administered medications for this visit.? ? ALLERGIES:?Benadryl [Diphenhydramine Hcl] ? PERSONAL HISTORY:? SOCIAL HISTORY Social History ? Tobacco Use ? Smoking status: Former Smoker ? ? Packs/day: 0.50 ? Smokeless tobacco: Never Used ? Tobacco comment: 3 months Substance Use Topics ? Alcohol use: No ? Drug use: Not Currently ? ? Types: Marijuana ? ? Comment: early in ? FAMILY HISTORY:? FAMILY HISTORY FAMILY HISTORY Problem Relation Age of Onset ? No Known Problems Mother ? ? No Known Problems Father ? ? No Known Problems Sister ? ? No Known Problems Brother ? ? No Known Problems Maternal Grandmother ? ? No Known Problems Maternal Grandfather ? ? No Known Problems Sister ? ? No Known Problems Daughter ? ? REVIEW OF SYMPTOMS: GENERAL: denies fevers or chills ENDOCRINOLOGY: has not been on steroids Cardiology : denies palpitations or chest pain Respiratory: denies SOB or cough Hematology: denies history of prolonged bleeding or easy bruising or VTE Allergy: Denies history of personal or family history of allergy to anesthesia ? ? PHYSICAL EXAMINATION: ? VITALS:?Blood pressure 118/70, weight 217 lb (98.4 kg), not currently . ? GENERAL:??The patient is well nourished, well hydrated in no acute distress. ?, The patient is oriented to time, place, and person. NECK:?Supple. No lynphadenopathy, normal thyroid, no thyromegaly. LUNGS:?Clear to auscultation bilaterally. no wheezes, rhonchi or rales HEART:?Regular rate and rhythm, Normal heart sounds and No murmurs or gallops abd- soft, nontender, gravid ? IMPRESSION:?preop c/s, 39 weeks ? PLAN:???The risks/benefits/alternatives and personal involved for the planned?c- section?were reviewed with the patient. Her questions were answered to her satisfaction and she desires to proceed. ?Consent was signed. ?I reviewed with her postop instructions and expectations. ? ? I have reviewed and updated past medical and surgical history, medications and allergies? This history and physical was completed in my office on 01/25/19 <Gabriela Morales - Last Filed: 01/27/19 20:33> History and Physical Date of Admission: 01/27/19 Patient presented in labor with ruptured membranes ay 38&5 weeks. Decision was made to proceed with repeat . Informed consent signed again.
[2019-01-27] VITALS (8 sets, daily range): BP systolic 96–139; BP diastolic 46–73; PULSE 83–96; RESP 14–22; TEMP 36.6–36.9; O2SAT 95–99; BMI 34.0
[2019-01-27 18:57] LABS: Absolute Lymphocyte Count 1.57 X10^3/uL (0.83-4.51); Absolute Neutrophil Count 13.4 X10^3/uL (2.0-7.7); Basophil# 0.04 X10^3/uL; Basophil% 0.2 % (0-1); Eosinophil# 0.15 X10^3/uL; Eosinophils% 0.9 % (0-5); Hematocrit 33.5 % (37-47); Hemoglobin 10.9 g/dL (12.0-15.0); Lymphocyte # 1.57 X10^3/ul (4.0); Lymphocyte % 9.6 % (19-41); Mean Corp Hgb Conc 32.5 g/dL (32-36); Mean Corpuscular Hgb 27.8 pg (27.0-32.0); Mean Corpuscular Volume 85.5 fL (81-99); Monocyte# 1.14 X10^3/uL; Monocyte% 6.9 % (0-10); NRBC Flagged by Analyzer 0 % (0-5); Neutrophil # 13.42 X10^3/uL (2.7-7.7); Neutrophil % 81.8 % (47-70); Platelet Count 312 K/mm3 (150-450); RBC Distribution Width CV 15.2 % (11.6-14.6); RBC Distribution Width SD 46.5 fl (35.1-43.9); Red Blood Count 3.92 M/mm3 (4.2-5.4); White Blood Count 16.4 K/mm3 (4.4-11.0)
[2019-01-27] MEDS: Lactated Ringers 1,000 ML 999 ML IV (19:07)
[2019-01-27] MEDS: Cefazolin 2 GM in 0.9% Normal Saline 100 ML IV (19:48)
[2019-01-27] MEDS: Lactated Ringers 1,000 ML 150 ML IV (19:55)
[2019-01-27] MEDS: Sodium Citrate/Citric Acid 30 ML UDC PO (19:56)
[2019-01-27 20:16] LABS: Amphetamine Urine VISTA NEGATIVE (<1000 ng/mL); Barbiturate Urine VISTA NEGATIVE (< 200 ng/mL); Benzodiazepine Urine VISTA NEGATIVE (< 200 ng/mL); Cocaine Urine VISTA NEGATIVE (< 300 ng/mL); Ecstacy Urine VISTA NEGATIVE (< 500 ng/mL); Methadone Urine VISTA NEGATIVE (< 300 ng/mL); PCP Urine VISTA NEGATIVE (< 25 ng/mL); THC Urine VISTA NEGATIVE (< 50 ng/mL); Vista UDS pH Range 6
--- NOTE | 2019-01-27 21:52 | PCM.OPRPT ---
Report of Operation Surgery/Procedure Performed:: Low transverse section Description of Surgical Findings:: Normal maternal uterus & ovaries, one fallopian tube surgically absent Scar tissue present involving the fascia, rectus muscles & peritoneum Very thin lower uterine segment Patient should not attempt TOLAC in the future Delivery Classification: LUCINDA Final ОЛЕГ: 02/05/19 Gestational age: 38 Weeks and 5 Days caustics loader: Nam Pierce Type of Anesthesia:: Spinal Date of Procedure: 01/27/19 Pre-Operative Diagnosis: (1) SROM (2) Prior section Post-Operative Diagnosis: (2) Same Indications for : Repeat Elective Description of Procedure: Patient taken to OR where spinal anesthesia was placed. She was prepped and draped in normal sterile fashion in a dorsal supine position with a leftward tilt. After ensuring adequacy of anesthesia the Pfannensteil skin incision was made and carried through to the underlying fascia with a scalpel. The fascia was incised in the midline and carried laterally with the Alfonso scissors. The rectus muscles were in the midline and the peritoneum was entered bluntly. The bladder flap was dissected down with a sponge gently. The uterine incision was made with the scalpel and extended laterally with blunt dissection. The fetus was vertex and the head was brought to the incision in the flexed position. With good fundal pressure the head easily delivered. head was gently guided to allow delivery of anterior & posterior shoulders. No excess traction placed on head. Body delivered easily. The #V cord was clamped and cut after 1 minute delay and the handed off to waiting RN. The placenta was delivered with gentle traction and fundal massage and the uterus was exteriorized and cleared of all clots and debris. The uterine incision was closed with 2 of the 1 vicryl sutures in a running locked fashion. The uterus was returned to the peritoneal cavity which was cleared of all clots and debris. Pelvis was irrigated. The uterine incision was reexamined and found to be hemostatic. Some surgicel powder was placed over the uterine incision due to the denuded areas. The fascia was closed with looped PDS suture in a running standard fashion. The subcutaneous tissue was examined and any bleeding bovie cauterized. The subcutaneous tissue was reapproximated with plain gut suture. The skin was closed in a subcuticular fashion by the TRAFFIC SIGNAL MECHANIC with me present in the labor and delivery suite. I performed the remainder of the procedure with assistance. Amniotic Membrane Rupture Type: Spontaneous Amniotic Fluid Description: Clear Placenta Disposition: [facility] Drain: Olguin to straight drain Fluids Replaced: 800ml Cord Entanglement: None Esitmated Blood Loss (ml): 800 Infant Gender: Female - weight 8-12 (1 minute): 9 (5 minute): 9 Delayed cord clamping: Yes Antibiotic Given: Ancef 2 grams IV x1, Zithromax 500 mg/5 mL X1
[2019-01-27] MEDS: Oxytocin 30 units/NS 500 ml 30 UNITS/500 ML IV.SOLN 167 UNITS IV (22:10)
[2019-01-27] MEDS: Acetaminophen 500 MG Tablet 1000 MG PO (23:26)
[2019-01-28] VITALS (21 sets, daily range): BP systolic 92–139; BP diastolic 44–73; PULSE 79–105; RESP 12–20; TEMP 36.3–37.1; O2SAT 94–100
[2019-01-28] MEDS: Lactated Ringers 1,000 ML 100 ML IV ×2 (00:15→10:22)
[2019-01-28] MEDS: Ketorolac 30 MG/ML Syringe IV ×4 (04:03→22:55)
[2019-01-28 06:14] LABS: Hematocrit 29.1 % (37-47); Hemoglobin 9.4 g/dL (12.0-15.0); Mean Corp Hgb Conc 32.3 g/dL (32-36); Mean Corpuscular Hgb 27.8 pg (27.0-32.0); Mean Corpuscular Volume 86.1 fL (81-99); Mean Platelet Vol. 10.2 fl (6.2-12.0); Platelet Count 263 K/mm3 (150-450); RBC Distribution Width CV 15.1 % (11.6-14.6); RBC Distribution Width SD 47.1 fl (35.1-43.9); Red Blood Count 3.38 M/mm3 (4.2-5.4); White Blood Count 17.1 K/mm3 (4.4-11.0)
--- NOTE | 2019-01-28 09:04 | PCM.PN.OB ---
Subjective: Doing well per patient and nursing staff. Whitman in place. Denies any increased vaginal bleeding, clots, leg pain, shortness of breath, dizziness, or other complaints. Pain controlled. Planning D/C home tomorrow. - Physical Exam Vitals/I&O's: Vital Signs Temp Pulse Resp BP Pulse Ox 98.8 F 85 15 101/44 L 95 01/28/19 05:43 01/28/19 07:10 01/28/19 07:10 01/28/19 05:43 01/28/19 07:10 Oxygen Delivery Method Room Air Weight: 224 lb 3.362 oz Body Mass Index (BMI) 34.0 Intake and Output for Last 24 Hours 01/26/19 01/27/19 01/28/19 23:59 23:59 23:59 Intake Total 1187.65 / 1187.65 1047.92 / 1047.92 Output Total 250 / 250 450 / 450 Balance 937.65 / 937.65 597.92 / 597.92 General: Alert, Oriented x3, Cooperative HEENT: Atraumatic, Normocephalic Neck: Trachea Midline Lungs: Clear to auscultation, Normal air movement, No rhonchi, No wheeze Cardiovascular: Regular rate, Regular Rhythm, No murmurs Abdomen: Bowel Sounds Present, - - Fundus firm 2 below U. Dressing intact, small amount of dry old blood on bottom of dressing Extremities: No edema Psych/Mental Status: Normal Affect, Appropriate Laboratory Results 01/27/19 18:30: WBC 16.4 H, RBC 3.92 L, Hgb 10.9 L, Hct 33.5 L, MCV 85.5, MCH 27.8, MCHC 32.5, RDW Std Deviation 46.5 H, RDW Coeff of Renee 15.2 H, Plt Count 312, MPV 10.0, Immature Gran % (Auto) 0.600, Neut % (Auto) 81.8 H, Lymph % (Auto) 9.6 L, [place] % (Auto) 6.9, Eos % (Auto) 0.9, Baso % (Auto) 0.2, Absolute Neuts (auto) 13.4 H, Absolute Lymphs (auto) 1.57, Nucleated RBC % 0 01/27/19 18:30: Blood Type A POSITIVE, Antibody Screen NEGATIVE 01/27/19 19:35: Urine Opiates Screen NEGATIVE, Urine Methadone Screen NEGATIVE, Ur Barbiturates Screen NEGATIVE, Ur Phencyclidine Scrn NEGATIVE, Ur Amphetamines Screen NEGATIVE, U Methamphetamin-MDMA NEGATIVE, U Benzodiazepines Scrn NEGATIVE, Urine Cocaine Screen NEGATIVE, U Cannabinoids Screen NEGATIVE, Ur Drug Screen Comment 01/28/19 05:40: WBC 17.1 H, RBC 3.38 L, Hgb 9.4 L, Hct 29.1 L, MCV 86.1, MCH 27.8, MCHC 32.3, RDW Std Deviation 47.1 H, RDW Coeff of Renee 15.1 H, Plt Count 263, MPV 10.2 Current Medications Acetaminophen (Tylenol) 1,000 mg PO Q8H PRN PRN PRN Reason: Pain Score 1-3/10 Last Admin: 01/27/19 23:26 Dose: 1,000 mg Documented by: Bisacodyl (Dulcolax) 10 mg RECTAL UD PRN PRN Reason: If no BM Hydrocortisone (Hytone) 1 applic TOPICAL TID PRN PRN; Protocol PRN Reason: Discomfort Lactated Ringer's () 1,000 mls @ 100 mls/hr IV .Q10H [facility] Last Admin: 01/28/19 00:15 Dose: 100 mls/hr Documented by: Naloxone HCl 4 mg/ Dextrose 504 mls @ 0 mls/hr IV .Q0M PRN; Protocol PRN Reason: Respiratory depression Ibuprofen (Motrin) 600 mg PO Q6H PRN PRN PRN Reason: Pain Score 1-3/10 Ketorolac Tromethamine (Toradol) 30 mg IV Q6H [facility] Stop: 01/29/19 22:31 Last Admin: 01/28/19 04:03 Dose: 30 mg Documented by: Methylergonovine Maleate (Methergine) 0.2 mg IM X1 PRN PRN Reason: Uterine Atony Nalbuphine HCl (Nubain) 5 mg IV Q3H PRN PRN PRN Reason: ITCHING Stop: 01/28/19 22:15 Naloxone HCl (Narcan) 0.02 mg IV Q1M PRN PRN Reason: RR <10 and pt unresponsive Ondansetron HCl (Zofran) 4 mg IV Q4H PRN PRN PRN Reason: Nausea Oxycodone HCl (Oxyir) 5 - 10 mg PO Q4H PRN PRN PRN Reason: Pain Score 4-10/10 Prochlorperazine Edisylate (Compazine Iv) 10 mg IV Q6H PRN PRN PRN Reason: NAUSEA Senna/Docusate Sodium (Senokot-S, Roopa-Colace) 1 - 2 tablet PO DAILY PRN PRN Reason: Constipation Simethicone (Mylicon) 80 mg PO PCHS PRN PRN Reason: Indigestion/stomach pain Last Admin: 01/27/19 23:27 Dose: 80 mg Documented by: Sodium Chloride () 5 - 15 ml IV UD PRN PRN Reason: SALINE FLUSH Medical Necessity - Tobacco Use Smoking Status: Former smoker Assessment/Plan All Active Problems False labor after 37 completed weeks of gestation (Acute) Shortness of breath due to in third trimester (Acute) SROM (spontaneous rupture of membranes) (Acute) Maternal fever during labor (Acute) Chorioamnionitis in third trimester (Acute) Severe sepsis (Acute) Ectopic without intrauterine (Acute) A:POD #1 section Bottlefeeding P: 1) Continue post op care 2) Remove hwitman 3) Planning D/C home tomorrow.
[2019-01-28] MEDS: Lactated Ringers 500 ML IV.SOLN. IV (11:34)
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
--- NOTE | 2019-01-28 22:14 | NURSING ---
2124 RN in room for 24 hour testing on baby, pt verbalized having limited support at home and she is concerned how she is going to heal and take care of both her baby and 13 month old daughter. pt stated her mother works long hours and wont be able to help much. pt stated i hope when he (fob) gets out he can help me some with taking care of them and with the bills 2144 RN into room. pt requested to take shower, RN stepped out of room briefly to get pt shower supplies. As RN reentered room, pt on phone with FOB. PT told FOB that she was going to get in shower. FOB began raising his voice on the phone, pt then said my nurse is in here and i want to shower and then get some rest FOB continued to talk loudly where RN could hear his voice from across the room, pt continued talking to him on the phone and stated i dont want to talk about this right now, i just care about taking care of my girls and when you get out you'll still be on probation
[2019-01-28] MEDS: oxyCODONE 5 MG Tablet PO (22:34)
[2019-01-28] MEDS: 0.9% Saline Lock 10 ML Syringe IV (22:57)
[2019-01-29 01:53] VITALS: BP 118/64; PULSE 93; RESP 16; TEMP 36.5; O2SAT 98
[2019-01-29] MEDS: Acetaminophen 500 MG Tablet 1000 MG PO (02:01)
[2019-01-29] MEDS: oxyCODONE 5 MG Tablet PO ×2 (02:35→08:47)
[2019-01-29] MEDS: Senna/Docusate Sodium 1 Tablet PO (02:36)
[2019-01-29] MEDS: Ketorolac 30 MG/ML Syringe IV ×2 (04:38→10:59)
[2019-01-29] MEDS: 0.9% Saline Lock 10 ML Syringe IV ×3 (04:39→10:59)
[2019-01-29 08:37] VITALS: BP 119/52; PULSE 91; RESP 16; TEMP 36.6; O2SAT 98
--- NOTE | 2019-01-29 10:45 | CASEMGMT ---
Social Work labor and delivery Early Head Start referral, which mother of baby signed, faxed to confirmed fax at [facility]. No other services requested. -MARYLOU Bo ,TOOL HONING MACHINE SET UP OPERATOR
[2019-01-29 11:04] VITALS: BP 109/57; PULSE 88; RESP 16; TEMP 36.7; O2SAT 98
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
--- NOTE | 2019-01-29 13:15 | PCM.PN.OB ---
Subjective: pain well controlled, average lochia. + Flatus, no BM. C/o still having heartburn. - Physical Exam Vitals/I&O's: Vital Signs Temp Pulse Resp BP Pulse Ox 98.1 F 88 16 109/57 L 98 01/29/19 11:04 01/29/19 11:04 01/29/19 11:04 01/29/19 11:04 01/29/19 11:04 Oxygen Delivery Method Room Air Weight: 101.7 kg Body Mass Index (BMI) 34.0 Intake and Output for Last 24 Hours 01/27/19 01/28/19 01/29/19 23:59 23:59 23:59 Intake Total 1187.65 / 1187.65 2981.25 / 2981.25 Output Total 250 / 250 1120 / 1120 Balance 937.65 / 937.65 1861.25 / 1861.25 General: Alert, Cooperative, No apparent distress Abdomen: Soft, Distended - mildly, softly, Tender - appropriately Extremities: Edema - 1+ Skin: Rash Present - bandage is clean dry and itnact, Incision Current Medications Acetaminophen (Tylenol) 1,000 mg PO Q8H PRN PRN PRN Reason: Pain Score 1-3/10 Last Admin: 01/29/19 02:01 Dose: 1,000 mg Documented by: Bisacodyl (Dulcolax) 10 mg RECTAL UD PRN PRN Reason: If no BM Hydrocortisone (Hytone) 1 applic TOPICAL TID PRN PRN; Protocol PRN Reason: Discomfort Naloxone HCl 4 mg/ Dextrose 504 mls @ 0 mls/hr IV .Q0M PRN; Protocol PRN Reason: Respiratory depression Ibuprofen (Motrin) 600 mg PO Q6H PRN PRN PRN Reason: Pain Score 1-3/10 Ketorolac Tromethamine (Toradol) 30 mg IV Q6H [facility] Stop: 01/29/19 22:31 Last Admin: 01/29/19 10:59 Dose: 30 mg Documented by: Methylergonovine Maleate (Methergine) 0.2 mg IM X1 PRN PRN Reason: Uterine Atony Naloxone HCl (Narcan) 0.02 mg IV Q1M PRN PRN Reason: RR <10 and pt unresponsive Ondansetron HCl (Zofran) 4 mg IV Q4H PRN PRN PRN Reason: Nausea Oxycodone HCl (Oxyir) 5 - 10 mg PO Q4H PRN PRN PRN Reason: Pain Score 4-10/10 Last Admin: 01/29/19 08:47 Dose: 10 mg Documented by: Prochlorperazine Edisylate (Compazine Iv) 10 mg IV Q6H PRN PRN PRN Reason: NAUSEA Senna/Docusate Sodium (Senokot-S, Roopa-Colace) 1 - 2 tablet PO DAILY PRN PRN Reason: Constipation Last Admin: 01/29/19 02:36 Dose: 2 tablet Documented by: Simethicone (Mylicon) 80 mg PO PCHS PRN PRN Reason: Indigestion/stomach pain Last Admin: 01/29/19 13:08 Dose: 80 mg Documented by: Sodium Chloride () 5 - 15 ml IV UD PRN PRN Reason: SALINE FLUSH Last Admin: 01/29/19 10:59 Dose: 10 ml Documented by: Medical Necessity - Tobacco Use Smoking Status: Former smoker Assessment/Plan All Active Problems False labor after 37 completed weeks of gestation (Acute) Shortness of breath due to in third trimester (Acute) SROM (spontaneous rupture of membranes) (Acute) Maternal fever during labor (Acute) Chorioamnionitis in third trimester (Acute) Severe sepsis (Acute) Ectopic without intrauterine (Acute) POD#2 s/p repeat c/s desires d/c today infant is doing well
--- NOTE | 2019-01-29 13:22 | DCINST_ITS ---
Discharge Diet: No Restrictions Discharge Activity: Return to Normal Activity, May Not Drive - for 2 weeks, May not drive while taking narcotic pain medications., May Shower, May Take a Tub Bath - in 7 days. May resume sexual activity in: 4-6 weeks Lifting Restrictions: 20 pounds Additional Activity Instructions:: Nothing in the vagina for 4-6 weeks. You may return to work/school in 6 weeks. Call your doctor if your incision/area has: Continuous Slow Oozing, Sudden Increased Bleeding, Increased Pain/ Swelling, Increased Redness, Foul Smelling Discharge Call your doctor if you observe: Fever of 101 or Higher, Using more than one pad per hour - for 2 hours Suture Line Care: Avoid Pulling/Pushing, Avoid Pinching/Bending Cleanse incision/area with: Keep Dressing Clean & Dry Additional Instructions: If you experience any of the following, contact your healthcare provider. * Bleeding that soaks a pad every hour for 2 hours * Fever 100.4 or higher * Unrelieved incision or abdominal pain * Swelling, redness, discharge or bleeding from your incision or episiotomy site * Your incision begins to separate * Problems urinating (including inability to urinate or burning while urinating). * Visual changes * Severe headache * Flu-like symptoms * Pain or redness in one of both of your breasts * Pain, warmth, tenderness or swelling in your legs, especially the calf area * Frequent nausea and vomiting * Symptoms of depression or anxiety If you experience any of the following, call 911 or go to the nearest Emergency Room. * Chest pain * Problems breathing * Seizure activity * Partial or complete paralysis of a body part, slurred speech, weakness or drooping of the face, or a sudden inability to walk or hold your balance Allergies/Adverse Reactions: Allergies diphenhydramine [From Benadryl] Allergy (Verified 08/16/18 14:45) Unknown Penicillins Allergy (Verified 08/16/18 14:45) Unknown codeine Adverse Reaction (Verified 08/16/18 14:45) Unknown Medications to take at Discharge Ferrous Sulfate 325 mg PO DAILY 01/27/19 Vits [Prenatabs FA ] 1 tab PO DAILY 01/27/19 Acetaminophen [Tylenol Extra Strength] 500 - 1,000 mg PO Q8 PRN #40 tab 01/29/19 Famotidine [Pepcid] 20 mg PO DAILY PRN #30 tab 01/29/19 Ibuprofen [Motrin] 800 mg PO TID PRN PRN #60 tab 01/29/19 Oxycodone [Oxyir] 5 mg PO Q6H PRN PRN 7 Days #28 tablet 01/29/19 The following prescriptions were given: Ibuprofen [Motrin] 800 mg PO TID PRN PRN #60 tab PRN Reason: Pain Transmission Status: Pending to [facility] Oxycodone [Oxyir] 5 mg PO Q6H PRN PRN 7 Days #28 tablet PRN Reason: severe pain Transmission Status: Sent to [facility] Famotidine [Pepcid] 20 mg PO DAILY PRN #30 tab PRN Reason: Heartburn Transmission Status: Pending to [facility] Acetaminophen [Tylenol Extra Strength] 500 - 1,000 mg PO Q8 PRN #40 tab PRN Reason: Pain Or Fever Transmission Status: Pending to [facility] Follow-Up: Call to make an appointment with your doctor for an incision check in 1-2 weeks. You will also need a 6 week post- follow up appointment. Test results from this visit will be discussed in further detail at your follow- up appointment, if applicable. Please Follow Up With: Carmela Dietz MD - Call to make an appointment for an incision check in 1-2 [phone] When: You will need a post check in 6 weeks. Primary Care Physician: Juve Brown MD [Primary Care Provider] -
--- NOTE | 2019-01-29 13:22 | DS.PCM_ITS ---
Discharge Date and Diagnosis Date of Admission: 01/27/19 Date of Discharge: 01/29/19 Hospital Course and Treatment Operations: - - Low transverse section Procedures: None Summary of Care Provided: The patient is a 18 year old female who had a previous section. She arrived with spontaneous rupture membranes. Repeat section was performed on 01/27/2019. Patient was noted to have a very thin lower uterine segment, and extensive scar tissue. It was recommend that she not consider a trial of labor in the future. Patient did well postoperatively. She had some mild antepartum anemia, mild worsening of the anemia is appropriate for blood loss during surgery. Patient was tolerable rating the anemia well. By postoperative day #2 she was ambulating, urinating and tolerating regular diet without difficulty. Patient was requesting discharge home. She was given routine instructions and prescriptions. She is to follow-up in the office in 1 to 2 weeks and as needed. [] - Physical Exam Vitals/I&O's: Vital Signs Temp Pulse Resp BP Pulse Ox 98.1 F 88 16 109/57 L 98 01/29/19 11:04 01/29/19 11:04 01/29/19 11:04 01/29/19 11:04 01/29/19 11:04 Oxygen Delivery Method Room Air Weight: 101.7 kg Body Mass Index (BMI) 34.0 Intake and Output for Last 24 Hours 01/27/19 01/28/19 01/29/19 23:59 23:59 23:59 Intake Total 1187.65 / 1187.65 2981.25 / 2981.25 Output Total 250 / 250 1120 / 1120 Balance 937.65 / 937.65 1861.25 / 1861.25 Current Medications Acetaminophen (Tylenol) 1,000 mg PO Q8H PRN PRN PRN Reason: Pain Score 1-3/10 Last Admin: 01/29/19 02:01 Dose: 1,000 mg Documented by: Bisacodyl (Dulcolax) 10 mg RECTAL UD PRN PRN Reason: If no BM Hydrocortisone (Hytone) 1 applic TOPICAL TID PRN PRN; Protocol PRN Reason: Discomfort Naloxone HCl 4 mg/ Dextrose 504 mls @ 0 mls/hr IV .Q0M PRN; Protocol PRN Reason: Respiratory depression Ibuprofen (Motrin) 600 mg PO Q6H PRN PRN PRN Reason: Pain Score 1-3/10 Ketorolac Tromethamine (Toradol) 30 mg IV Q6H MARTIN Stop: 01/29/19 22:31 Last Admin: 01/29/19 10:59 Dose: 30 mg Documented by: Methylergonovine Maleate (Methergine) 0.2 mg IM X1 PRN PRN Reason: Uterine Atony Naloxone HCl (Narcan) 0.02 mg IV Q1M PRN PRN Reason: RR <10 and pt unresponsive Ondansetron HCl (Zofran) 4 mg IV Q4H PRN PRN PRN Reason: Nausea Oxycodone HCl (Oxyir) 5 - 10 mg PO Q4H PRN PRN PRN Reason: Pain Score 4-10/10 Last Admin: 01/29/19 08:47 Dose: 10 mg Documented by: Prochlorperazine Edisylate (Compazine Iv) 10 mg IV Q6H PRN PRN PRN Reason: NAUSEA Senna/Docusate Sodium (Senokot-S, Roopa-Colace) 1 - 2 tablet PO DAILY PRN PRN Reason: Constipation Last Admin: 01/29/19 02:36 Dose: 2 tablet Documented by: Simethicone (Mylicon) 80 mg PO PCHS PRN PRN Reason: Indigestion/stomach pain Last Admin: 01/29/19 13:08 Dose: 80 mg Documented by: Sodium Chloride () 5 - 15 ml IV UD PRN PRN Reason: SALINE FLUSH Last Admin: 01/29/19 10:59 Dose: 10 ml Documented by: Discharge Diet: No Restrictions Discharge Activity: Return to Normal Activity, May Not Drive - for 2 weeks, May not drive while taking narcotic pain medications., May Shower, May Take a Tub Bath - in 7 days. May resume sexual activity in: 4-6 weeks Additional Activity Instructions:: Nothing in the vagina for 4-6 weeks. You may return to work/school in 6 weeks. Call your doctor if your incision/area has: Continuous Slow Oozing, Sudden Increased Bleeding, Increased Pain/ Swelling, Increased Redness, Foul Smelling Discharge Call your doctor if you observe: Fever of 101 or Higher, Using more than one pad per hour - for 2 hours Suture Line Care: Avoid Pulling/Pushing, Avoid Pinching/Bending Cleanse incision/area with: Keep Dressing Clean & Dry Home Medications: Medications to take at Discharge Ferrous Sulfate 325 mg PO DAILY 01/27/19 Vits [Prenatabs FA ] 1 tab PO DAILY 01/27/19 Acetaminophen [Tylenol Extra Strength] 500 - 1,000 mg PO Q8 PRN #40 tab 01/29/19 Famotidine [Pepcid] 20 mg PO DAILY PRN #30 tab 01/29/19 Ibuprofen [Motrin] 800 mg PO TID PRN PRN #60 tab 01/29/19 Oxycodone [Oxyir] 5 mg PO Q6H PRN PRN 7 Days #28 tablet 01/29/19 Following Prescrptions Were Given to Patient: Ibuprofen [Motrin] 800 mg PO TID PRN PRN #60 tab PRN Reason: Pain Transmission Status: Pending to [facility] #30 Oxycodone [Oxyir] 5 mg PO Q6H PRN PRN 7 Days #28 tablet PRN Reason: severe pain Transmission Status: Sent to [facility] #30 Famotidine [Pepcid] 20 mg PO DAILY PRN #30 tab PRN Reason: Heartburn Transmission Status: Pending to [facility] [place] #30 Acetaminophen [Tylenol Extra Strength] 500 - 1,000 mg PO Q8 PRN #40 tab PRN Reason: Pain Or Fever Transmission Status: Pending to [facility] #30 Primary Care Physician: Juve Brown MD [Primary Care Provider] - Please Follow Up With: Carmela Dietz MD - Call to make an appointment for an incision check in 1-2 [phone] When: You will need a post check in 6 weeks. Medical Necessity - Tobacco Use Smoking Status: Former smoker Meaningful Use Info Meaningful Use Diagnoses (Choose all that apply): None applicable
[2019-01-29 15:35] VITALS: BP 117/65; PULSE 93; RESP 18; TEMP 36.7; O2SAT 100
== END 2019-01-29 14:45 | disposition home or self-care (01) | DRG 540 ==
PROVIDERS: Admitting Provider Obstetrics & Gynecology; Family Provider Family Medicine; PCP Family Medicine; Referring Provider Obstetrics & Gynecology; Visit Provider Obstetrics & Gynecology
DX: O34.211 Maternal care for low transverse scar from previous cesarean delivery (principal); O42.92 Full-term premature rupture of membranes, unspecified as to length of time between rupture and onset of labor; O34.593 Maternal care for other abnormalities of gravid uterus, third trimester; O99.324 Drug use complicating childbirth; F12.90 Cannabis use, unspecified, uncomplicated; O99.02 Anemia complicating childbirth; D62 Acute posthemorrhagic anemia; Z3A.38 38 weeks gestation of pregnancy; Z37.0 Single live birth; Z87.59 Personal history of other complications of pregnancy, childbirth and the puerperium; Z87.891 Personal history of nicotine dependence
CPT/HCPCS: 59025; 59050; 80307; 85025; 85027; 86850; 86900; 86901; 99218; 99251; J7120; A4216; G0378; G0463; J2405

== ENCOUNTER 2020-01-31 15:58 | Emergency (ER) | payer MEDICAID, SELFPAY ==
[2019-01-27 18:39] VITALS: BMI 34.0
[2020-01-31 15:59] VITALS: BP 121/76; PULSE 89; RESP 17; TEMP 36.4; O2SAT 99; BMI 23.1
--- NOTE | 2020-01-31 16:13 | ED.VIS.GEN ---
History of Present Illness Chief Complaint: Upper Extremity Injury Detail of Chief Complaint: swelling Informant: Patient Onset: Hours - several Context: Gradual Onset Timing: Continuous Quality: sore, swollen Location: left ring finger Current Severity: Moderate Maximum Severity: Moderate Worsened by: trying to get ring off Relieved by: nothing Narrative: Patient states she put a ring on her finger that is too small did not realize it until it was on and she cannot get it off. In trying to get it off, her fingers sore and started getting swollen. She actually put 2 rings on, the other one does not seem as small or tight, but due to the swelling, she cannot get it off either. She wants both of them off. She did not have any issues with her hand or finger until she put these rings on. Past Medical History - Allergies and Home Meds Allergies/Adverse Reactions: Allergies diphenhydramine [From Benadryl] Allergy (Verified 01/31/20 15:59) Unknown Penicillins Allergy (Verified 01/31/20 15:59) Unknown codeine Adverse Reaction (Verified 01/31/20 15:59) Unknown Primary Care Physician: Juve Brown MD [Primary Care Provider] - As Needed Prior records reviewed: No Smoking Status: Former smoker - Family History Maternal Family History: Reports: No pertinent history Paternal Family History: Reports: No pertinent history Review of Systems General: Denies: Chills, Fever, Sweats Musculoskeletal: Reports: Swelling - See HPI, Extremity Pain Skin: Denies: Rash, Wounds Neurological: Denies: Headache, Weakness, Numbness Physical Exam Vital Signs/Narrative: Vital Signs Temp Pulse Resp BP Pulse Ox 01/31/20 15:59 97.5 F L 89 17 121/76 H 99 Inital Vital Signs reviewed: Yes General: Well nourished, Well developed, No Acute Distress Extremities: Tenderness - Mild at the proximal phalanx of the left ring finger. There are 2 rings on it, and there is some soft tissue swelling there, preventing removal of both of the rings over the PIPJ. One of the rings is fairly snug, the other is loose around the proximal phalanx until it is pulled to the joint. Skin: Normal color, No rash, Trauma - Skin intact left ring finger. Slight erythema locally around the proximal phalanx where her rings are, no induration or open wounds. Neurological: Alert, Oriented x3, Cranial nerves II-XII grossly intact, Normal Strength, Normal Sensation, Normal Gait Psychological: Normal affect, Normal Mood Procedures Procedure(s): Foreign body removal, left ring finger --initially attempted to remove looser ring by icing the patient's finger and applying lubricant. She did not tolerate it and it was tight around the PIPJ, so after obtaining consent from the patient, both of the rings were cut and physically bent off of her with pliers. There was no laceration or bleeding, patient has full range of motion of her finger after removal. Tolerated well no complications. ED Disposition - Plan for ED Patient: Disposition: Home or Assisted Living Diagnosis: Tight ring on finger Instructions: ED Foreign Body Soft Tissue Removed Referrals: Juve Brown MD [Primary Care Provider] - As Needed
--- NOTE | 2020-01-31 16:34 | ED.RN ---
DISCHARGE INSTRUCTIONS GIVEN TO AND REVIEWED WITH PATIENT, PATIENT DENIES QUESTIONS OR CONCERNS AND VOICES UNDERSTANDING OF DISCHARGE INSTRUCTIONS. PT AMBULATES OUT OF ROOM WITHOUT DIFFICULTY.
== END 2020-01-31 16:35 | disposition home or self-care (01) ==
LOC: ED 16:34
PROVIDERS: Emergency Provider Emergency Medicine; PCP Family Medicine
DX: S60.449A External constriction of unspecified finger, initial encounter (principal); W49.04XA Ring or other jewelry causing external constriction, initial encounter; Z87.891 Personal history of nicotine dependence
CPT/HCPCS: 99282

== ENCOUNTER 2020-07-31 16:01 | Emergency (ER) | payer MEDICAID, SELFPAY ==
[2020-07-31 16:03] VITALS: BP 132/89; PULSE 139; RESP 20; TEMP 37.2; O2SAT 98; BMI 27.5
[2020-07-31 16:16] VITALS: O2SAT 98
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
[2020-07-31 16:22] VITALS: BP 129/70; PULSE 139; RESP 22; O2SAT 98
[2020-07-31] MEDS: 0.9% Normal Saline 1,000 ML 999 ML IV (16:46)
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
[2020-07-31 19:31] VITALS: BP 122/85; PULSE 119; RESP 19; O2SAT 97
[2020-07-31 21:01] VITALS: BP 117/58; PULSE 103; RESP 16; O2SAT 96
== END 2020-07-31 17:00 ==
PROVIDERS: Emergency Provider Emergency Medicine; PCP Family Medicine
DX: O9A.213 Injury, poisoning and certain other consequences of external causes complicating pregnancy, third trimester (principal); S39.91XA Unspecified injury of abdomen, initial encounter; O99.333 Smoking (tobacco) complicating pregnancy, third trimester; F17.200 Nicotine dependence, unspecified, uncomplicated; Z3A.00 Weeks of gestation of pregnancy not specified; V49.9XXA Car occupant (driver) (passenger) injured in unspecified traffic accident, initial encounter
CPT/HCPCS: 71045; 76700; 96360; 96361; 99285; J7030; A4216

== ENCOUNTER 2020-07-31 20:03 | Outpatient (CLI) | payer MEDICAID, SELFPAY ==
--- NOTE | 2020-07-31 20:48 | US_ITS ---
STUDY: SECOND AND THIRD TRIMESTER OBSTETRICAL ULTRASOUND - LIMITED REASON FOR EXAM: Female, 20 years old NO CARE LMP: 12/17/2019. PRIOR ULTRASOUND: None. TECHNIQUE: TECHNICAL QUALITY: Adequate. FINDINGS: There is a single intrauterine fetus. The fetus is in a cephalic presentation. There is demonstrated cardiac activity with a heart rate of 121 bpm. There is a normal amniotic fluid volume. The largest amniotic fluid pocket measures 4.3 cm. The amniotic fluid index (HERLINDA) is 10.1 cm. The placenta is fundal. The cervix is poorly seen. BIOMETRY: Biparietal diameter corresponds to estimated gestational age of 32 weeks 5 days, head circumference to 33 weeks 2 days, abdominal circumference to 31 weeks 5 days, femur length to 30 weeks 5 days. Mean sonographic estimated gestational age measures 32 weeks 1 day with estimated date of delivery 09/24/2020. Estimated weight: 1828 grams, +/- 274 grams, 21.5 percentile. US/OB Limited With Biometrics IMPRESSION: Single live intrauterine gestation in vertex presentation with estimated gestational age of 32 weeks 1 day. Electronically Signed: Adrianna Chi MD at 21:56 EDT Tel , Service support ,
[2020-07-31 20:55] LABS: Absolute Lymphocyte Count 1.58 X10^3/uL (0.83-4.51); Absolute Neutrophil Count 11.8 X10^3/uL (2.0-7.7); Basophil# 0.04 X10^3/uL; Basophil% 0.3 % (0-1); Eosinophil# 0.06 X10^3/uL; Eosinophils% 0.4 % (0-5); Hematocrit 27.8 % (37-47); Hemoglobin 9.2 g/dL (12.0-15.0); Lymphocyte # 1.58 X10^3/ul (0.83-4.51); Lymphocyte % 10.9 % (19-41); Mean Corp Hgb Conc 33.1 g/dL (32-36); Mean Corpuscular Volume 90.6 fL (81-99); Mean Platelet Vol. 9.7 fl (6.2-12.0); Monocyte# 0.85 X10^3/uL; Monocyte% 5.9 % (0-10); NRBC Flagged by Analyzer 0 % (0-5); Neutrophil # 11.75 X10^3/uL (2.7-7.7); Neutrophil % 81.3 % (47-70); Platelet Count 305 K/mm3 (150-450); RBC Distribution Width CV 14.1 % (11.6-14.6); Red Blood Count 3.07 M/mm3 (4.2-5.4); White Blood Count 14.5 K/mm3 (4.4-11.0)
[2020-07-31 21:31] LABS: ALB/GLOB Ratio 0.7 RATIO (0.9-2.4); AST(SGOT) 21 U/L (15-37); Alanine Aminotransfer ALT/SGPT 19 U/L (13-56); Albumin, Serum 2.5 g/dL (3.2-5.0); Alkaline Phosphatase 104 U/L (45-117); Anion Gap 8 (5-15); BUN 12 mg/dL (7-18); BUN/Creat Ratio 21.9 RATIO (10-20); Calcium,Total 7.8 mg/dL (8.5-10.1); Chloride 112 mmol/L (98-107); Creatinine, Serum 0.55 mg/dL (0.55-1.02); EST Glomerular Filtration Rate 148 mL/min (>60); Est Glom Filt Rate - Afr Amer 179 mL/min (>60); Globulin 3.7 g/dL (2.2-4.2); Glucose 63 mg/dL (74-106); Potassium 3.3 mmol/L (3.5-5.1); Protein, Total 6.2 g/dL (6.4-8.2); Sodium Level 141 mmol/L (136-145)
[2020-07-31 21:36] LABS: Alcohol, Blood (Medical)-Serum < 3.0 mg/dL
[2020-07-31 21:49] VITALS: BP 116/57; PULSE 99; TEMP 37.1
[2020-07-31 22:03] LABS: Bacteria 0 SEEN /hpf (None Seen); Red Blood Cells-Urine 0 SEEN /hpf (0-5); White Blood Cells 0 SEEN /hpf (0-5)
[2020-07-31 22:07] LABS: Color, Urine Yellow (Yellow); Glucose, Dipstick Normal (Normal); Leukocyte Esterase-Dipstick Negative /ul (Negative); Nitrite-Dipstick Negative (Negative); Occult Blood-Urine Negative /ul (Negative); Protein-Dipstick 15 mg/dl (Negative); Specific Gravity, Urine 1.025 (1.002-1.030); Urine Bilirubin Dipstick Negative (Negative); Urine Clarity Sl. Cloudy (Clear); Urine Urobilinogen Normal (Normal)
[2020-07-31 22:18] LABS: Hepatitis C Antibody Non-Reactive (Nonreactive)
[2020-07-31 22:18] LABS: Amphetamine Urine VISTA POSITIVE (<1000 ng/mL); Barbiturate Urine VISTA NEGATIVE (< 200 ng/mL); Benzodiazepine Urine VISTA NEGATIVE (< 200 ng/mL); Cocaine Urine VISTA NEGATIVE (< 300 ng/mL); Ecstacy Urine VISTA POSITIVE (< 500 ng/mL); Methadone Urine VISTA NEGATIVE (< 300 ng/mL); PCP Urine VISTA NEGATIVE (< 25 ng/mL); THC Urine VISTA POSITIVE (< 50 ng/mL); Vista UDS pH Range 6
[2020-07-31 22:20] LABS: HIV - WCH Non-Reactive (Nonreactive); Hepatitis B Surface Antibody Non-Reactive; Hepatitis C Antibody Non-Reactive (Nonreactive); Syphilis Antibodies Non-reactive
[2020-07-31 22:25] LABS: Ketone-Dipstick 150 mg/dl (Negative)
[2020-07-31 22:26] LABS: Mucous, Urine 2+ /hpf (<or=2+); Squamous Epithelial Cells - UA 0-5 SEEN /hpf (5-10)
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
[2020-07-31 23:58] LABS: Chlamydia Trachomatis by PCR Negative (Negative); Neisserai gonorrhoeae by PCR Negative (Negative); Probe Check PASS; Sample Adequacy Control PASS; Specimen Processing Control PASS
[2020-08-01 09:02] LABS: Kleihauer-Betke Negative
[2020-08-03 10:33] LABS: Rubella IgG Reactive (Nonreactive)
[2020-08-04 18:55] LABS: HIV-1 RNA by PCR, Quant. < 20 copies/mL (.)
== END 2020-07-31 22:50 ==
LOC: EDREF 21:59 → WPOUT 22:00 → OBT 22:02
PROVIDERS: Emergency Medicine; PCP Family Medicine; Visit Provider Obstetrics & Gynecology
DX: O09.33 Supervision of pregnancy with insufficient antenatal care, third trimester (principal); O99.013 Anemia complicating pregnancy, third trimester; O26.893 Other specified pregnancy related conditions, third trimester; R82.5 Elevated urine levels of drugs, medicaments and biological substances; D64.9 Anemia, unspecified; Z3A.32 32 weeks gestation of pregnancy; Z87.891 Personal history of nicotine dependence
CPT/HCPCS: 59025; 59050; 71045; 76700; 76816; 80053; 80307; 81001; 82077; 85025; 85460; 86703; 86706; 86762; 86780; 86803; 86900; 86901; 87086; 87088; 87491; 87536; 87591; 87653; 96360; 96361; 99218; 99285; J7030; A4216; G0378

== ENCOUNTER 2020-08-18 12:27 | Emergency (ER) | payer MEDICAID, SELFPAY ==
[2020-08-18 12:28] VITALS: BP 131/80; PULSE 100; RESP 16; TEMP 37; O2SAT 97; BMI 23.1; BMI 27.3
--- NOTE | 2020-08-18 12:32 | ED.RN ---
PT WAS ON PHONE DURING THE TRIAGE PROCESS. WHEN PT GOT OFF THE PHONE SHE WAS TOLD TO NOT MAKE HER PHONE CALLS TIL AFTER THE DR AND NURSE SEE HER SO THEY CAN TAKE CARE OF HER IN A TIMELY MANNER.
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
[2020-08-18 12:56] VITALS: RESP 18
== END 2020-08-18 12:56 | disposition home or self-care (01) ==
LOC: ED 12:42
PROVIDERS: Emergency Provider Emergency Medicine; PCP Family Medicine
DX: O99.719 Diseases of the skin and subcutaneous tissue complicating pregnancy, unspecified trimester (principal); O99.330 Smoking (tobacco) complicating pregnancy, unspecified trimester; L30.9 Dermatitis, unspecified; F17.210 Nicotine dependence, cigarettes, uncomplicated; Z3A.00 Weeks of gestation of pregnancy not specified
CPT/HCPCS: 99283

== ENCOUNTER → 2020-09-07 14:07 | Outpatient (CLI) | payer MEDICAID, SELFPAY ==
[2020-08-18 12:28] VITALS: BMI 27.3
== END ==
PROVIDERS: PCP Family Medicine; Visit Provider Obstetrics & Gynecology
DX: Z36.85 Encounter for antenatal screening for Streptococcus B (principal)
CPT/HCPCS: 87081

== ENCOUNTER 2020-09-11 10:40 | Inpatient (IN) | payer MEDICAID, SELFPAY ==
[2020-08-18 12:28] VITALS: BMI 27.3
[2020-09-11] VITALS (22 sets, daily range): BP systolic 85–135; BP diastolic 32–77; PULSE 76–113; RESP 13–24; TEMP 36.3–37.3; O2SAT 16–100; BMI 28.3
[2020-09-11] MEDS: Lactated Ringers 1,000 ML 999 ML IV (10:55)
[2020-09-11 10:58] LABS: ROM Internal Control Test YES-OK TO RESULT pt. (Internal QC)
[2020-09-11 11:00] LABS: ROM Patient Test POSITIVE (Negative)
[2020-09-11 11:02] LABS: Amphetamine Urine VISTA NEGATIVE (<1000 ng/mL); Barbiturate Urine VISTA NEGATIVE (< 200 ng/mL); Benzodiazepine Urine VISTA NEGATIVE (< 200 ng/mL); Cocaine Urine VISTA NEGATIVE (< 300 ng/mL); Ecstacy Urine VISTA NEGATIVE (< 500 ng/mL); Methadone Urine VISTA NEGATIVE (< 300 ng/mL); PCP Urine VISTA NEGATIVE (< 25 ng/mL); THC Urine VISTA NEGATIVE (< 50 ng/mL); Vista UDS pH Range 6
[2020-09-11 11:20] LABS: Basophil# 0.05 X10^3/uL; Basophil% 0.3 % (0-1); Eosinophil# 0.14 X10^3/uL; Eosinophils% 0.8 % (0-5); Hemoglobin 10.8 g/dL (12.0-15.0); Lymphocyte % 8.7 % (19-41); Mean Corp Hgb Conc 32.7 g/dL (32-36); Mean Corpuscular Hgb 28.7 pg (27.0-32.0); Mean Corpuscular Volume 87.8 fL (81-99); Mean Platelet Vol. 10.1 fl (6.2-12.0); Monocyte# 1.08 X10^3/uL; Monocyte% 5.9 % (0-10); NRBC Flagged by Analyzer 0 % (0-5); Neutrophil # 15.02 X10^3/uL (2.7-7.7); Neutrophil % 81.7 % (47-70); Platelet Count 344 K/mm3 (150-450); RBC Distribution Width CV 15.4 % (11.6-14.6); RBC Distribution Width SD 47.8 fl (35.1-43.9); Red Blood Count 3.76 M/mm3 (4.2-5.4); White Blood Count 18.4 K/mm3 (4.4-11.0)
[2020-09-11] MEDS: Sodium Citrate/Citric Acid 30 ML UDC PO (11:33)
[2020-09-11] MEDS: Acetaminophen 500 MG Tablet 1000 MG PO ×2 (11:33→18:38)
[2020-09-11] MEDS: Lactated Ringers 1,000 ML 150 ML IV (11:55)
[2020-09-11] MEDS: Cefazolin 2 GM in 0.9% Normal Saline 100 ML IV (12:11)
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
[2020-09-11] MEDS: COPPER IUD 1 EACH INTRA-UTER (12:44)
--- NOTE | 2020-09-11 13:19 | OP.PCM_ITS ---
Problems Associated Problem List Diagnoses (1) delivery delivered: Report of Operation Date of Procedure: 09/11/20 Pre-Operative Diagnosis: 1. 38 1/7 weeks gestation 2. Spontaneous rupture of membranes 3. 2 prior sections 4. Request IUD placement Post-Operative Diagnosis: 1. 38 1/7 weeks gestation 2. Spontaneous rupture of membranes 3. 2 prior sections 4. Request IUD placement Surgery/Procedure Performed:: 1. Repeat low-transverse section 2. ParaGard IUD placement Description of Surgical Findings:: Normal-appearing bilateral tubes and ovaries. Surgeon: Roxanne Frazier heat seal operator: Kathi Casper Type of Anesthesia: Spinal Anesthesiologist: Deshawn Garibay Estimated Blood Loss (mL): 750 Fluids Replaced: 1000ml Description of Procedure: Indications: 20-year-old 4 para 2-0-1-2 presents at 38-1/7 weeks gestational age with spontaneous rupture membranes in latent labor. She had 2 prior sections and desired repeat section. She requested an intrauterine device. I discussed with her risks, benefits, indications of the Liletta and ParaGard IUD. Reviewed with her that these were reversible devices and alternatives were discussed. The patient opted to proceed with section and placement of the ParaGard IUD. The patient was taken to the operating room and spinal analgesia was administered. She is placed in a dorsal supine position with left lateral tilt. The perineum and abdomen were prepped and draped in sterile fashion. And the spinal was found to be adequate. A Pfannenstiel incision was made using a scalpel and brought down to incise the subcutaneous tissue and rectus fascia at the midline. Subcutaneous tissue was bluntly dissected off the fascia laterally. The fascial incision was dissected laterally and cephalad using curved Alfonso scissors. The superior leaflet of the rectus fascia was grasped using Daniel clamps and bluntly dissected and sharply dissected from the underlying rectus muscle. In a similar fashion the inferior rectus fascia was dissected from the underlying muscle. The rectus muscles were bluntly at the midline. The peritoneum was identified and entered [sharply]. The bladder blade was placed into the abdomen and the vesicouterine peritoneal fold identified. The fold was incised and a bladder flap created. Bladder blade was then repositioned to the abdomen. A low transverse hysterotomy was made using the [Metzenbaum scissors] to level of the membranes. The hysterotomy was extended bluntly cephalad and caudad. The membranes were then ruptured revealing clear fluid. The head was elevated and brought to the level of the hysterotomy and the delivered revealing vigorous [male] . The cord was doubly clamped and cut after 30 seconds. The was passed to awaiting [nursery personnel]. The placenta was [expressed] from the uterus and appeared intact on inspection. The uterus was cleared of debris. The ParaGard IUD was placed at the fundus manually and the strings guided towards the cervix. The hysterotomy was then repaired using 0 Vicryl running lock suture. A second imbricating layer was also placed for additional hemostasis. The bladder blade was removed. The anterior cul-de-sac was cleared of debris. The peritoneum and rectus muscles were reapproximated using 2-0 Vicryl running suture. The rectus fascia was closed using 0 Vicryl running suture. The subcutaneous tissue was sponge irrigated and small capillary bleeding controlled using the Bovie device. The subcutaneous tissue was reapproximated using 2-0 Vicryl. The skin was closed using 4-0 Monocryl subcuticularly by the TRUCK MECHANIC under my supervision. A Mepilex occlusive dressing was placed over the incision. The fundus was firm. The patient was then transferred to the recovery room without complication. Sponge, instrument, and needle counts were correct ?2. Complications none Admit VTE Documentation VTE Present on Admission: No VTE Mechan Device Prophylaxis: SCD's VTE Pharm Prophylaxis ordered?: No
[2020-09-11] MEDS: Oxytocin 30 units/NS 500 ml 30 UNITS/500 ML IV.SOLN 167 UNITS IV (13:35)
[2020-09-11] MEDS: Ketorolac 30 MG/ML Syringe IV ×2 (14:11→19:50)
[2020-09-11 16:25] LABS: Bedside Glucose 64 mg/dL (70-110)
[2020-09-11] MEDS: Lactated Ringers 1,000 ML 100 ML IV (17:02)
[2020-09-11] MEDS: Lactated Ringers 500 ML 999 ML IV ×2 (18:39→21:25)
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
--- NOTE | 2020-09-11 21:30 | NURSING ---
fob back on unit in pts room, strong marijuana odor noted
[2020-09-11] MEDS: Cefazolin 1 GM/50 ML BAG IV (21:58)
[2020-09-12] VITALS (12 sets, daily range): BP systolic 94–122; BP diastolic 38–70; PULSE 81–103; RESP 16–18; TEMP 36.3–37.1; O2SAT 96–100
[2020-09-12] MEDS: Acetaminophen 500 MG Tablet 1000 MG PO ×4 (00:25→18:27)
[2020-09-12] MEDS: Ketorolac 30 MG/ML Syringe IV ×2 (02:00→08:27)
[2020-09-12] MEDS: Lactated Ringers 1,000 ML 100 ML IV (02:00)
[2020-09-12] MEDS: Cefazolin 1 GM/50 ML BAG IV (05:39)
[2020-09-12 05:51] LABS: Hematocrit 30.6 % (37-47); Hemoglobin 9.9 g/dL (12.0-15.0); Mean Corp Hgb Conc 32.4 g/dL (32-36); Mean Corpuscular Volume 89.7 fL (81-99); Mean Platelet Vol. 9.8 fl (6.2-12.0); Platelet Count 271 K/mm3 (150-450); RBC Distribution Width CV 15.7 % (11.6-14.6); RBC Distribution Width SD 50.4 fl (35.1-43.9); Red Blood Count 3.41 M/mm3 (4.2-5.4); White Blood Count 14.1 K/mm3 (4.4-11.0)
[2020-09-12] MEDS: 0.9% Saline Lock 10 ML Syringe IV ×2 (06:36→08:27)
--- NOTE | 2020-09-12 07:02 | PCM.PN.OB ---
Subjective Subjective Pain controlled, reports she has not been out of bed much yet. Denies lightheadedness, nause, vomiting. She tolerates PO. Passing flatus. Has not voided yet. Objective Data Objective Data Vital Signs: Vital Signs Temp Pulse Resp BP Pulse Ox 97.4 F L 88 16 102/63 99 09/12/20 05:41 09/12/20 05:41 09/12/20 05:41 09/12/20 05:41 09/12/20 05:41 Oxygen Delivery Method Room Air Weight: 83.098 kg Body Mass Index (BMI) 28.3 Intake & Output: Intake and Output for Last 24 Hours 09/10/20 09/11/20 09/12/20 23:59 23:59 23:59 Intake Total 4018.33 / 4018.33 865.00 / 865.00 Output Total 1100 / 1100 375 / 375 Balance 2918.33 / 2918.33 490.00 / 490.00 Lab / Micro Data Result Diagrams: 09/12/20 05:45 Labs: Laboratory Results - last 24 hr 09/11/20 09/11/20 09/11/20 10:30 10:30 10:55 WBC 18.4 H RBC 3.76 L Hgb 10.8 L Hct 33.0 L MCV 87.8 MCH 28.7 MCHC 32.7 RDW Std Deviation 47.8 H RDW Coeff of Renee 15.4 H Plt Count 344 MPV 10.1 Immature Gran % (Auto) 2.600 H Neut % (Auto) 81.7 H Lymph % (Auto) 8.7 L Jerauld % (Auto) 5.9 Eos % (Auto) 0.8 Baso % (Auto) 0.3 Absolute Neuts (auto) 15.0 H Absolute Lymphs (auto) 1.60 Nucleated RBC % 0 Vag Amniotic Fld Detect POSITIVE H Urine Opiates Screen NEGATIVE Urine Methadone Screen NEGATIVE Ur Barbiturates Screen NEGATIVE Ur Phencyclidine Scrn NEGATIVE Ur Amphetamines Screen NEGATIVE U Methamphetamin-MDMA NEGATIVE U Benzodiazepines Scrn NEGATIVE Urine Cocaine Screen NEGATIVE U Cannabinoids Screen NEGATIVE Ur Drug Screen Comment POC Glucose Blood Type Antibody Screen 09/11/20 09/11/20 09/12/20 10:55 14:16 05:45 WBC 14.1 H RBC 3.41 L Hgb 9.9 L Hct 30.6 L MCV 89.7 MCH 29.0 MCHC 32.4 RDW Std Deviation 50.4 H RDW Coeff of Renee 15.7 H Plt Count 271 MPV 9.8 Immature Gran % (Auto) Neut % (Auto) Lymph % (Auto) Jerauld % (Auto) Eos % (Auto) Baso % (Auto) Absolute Neuts (auto) Absolute Lymphs (auto) Nucleated RBC % Vag Amniotic Fld Detect Urine Opiates Screen Urine Methadone Screen Ur Barbiturates Screen Ur Phencyclidine Scrn Ur Amphetamines Screen U Methamphetamin-MDMA U Benzodiazepines Scrn Urine Cocaine Screen U Cannabinoids Screen Ur Drug Screen Comment POC Glucose 64 L Blood Type A POSITIVE Antibody Screen NEGATIVE Micro: Microbiology 09/11/20 10:30 Mucosa - Nose SARS-CoV-2 Antigen (Rapid) - Final Physical Exam Const alert, oriented x3 and no apparent distress Resp normal respiratory effort, normal air movement and clear to auscultation bilaterally Cardio regular rate, regular rhythm, S1 normal heart sound and S2 normal heart sound GI normal to inspection, nondistended, normoactive bowel sounds, soft to palpation, non-tender and non-distended GI Narrative: incisional dressing dry and intact with minimal saturation <10% Manual OB Exam: other lochia scant Uterus Palpation: uterus fundus firm Extremity no calf tenderness Assessment & Plan (1) delivery delivered: PLAN: Routine postoperative care A positive Ambulation encouraged Utox neg
--- NOTE | 2020-09-12 07:30 | PCM.DC ---
Discharge Instructions Diet Discharge Diet: No restrictions Activity Discharge Activity: Return to Normal Activity and May Shower May resume sexual activity in: 4-6 weeks Lifting Restrictions: 10lb Dressing / Incision Call your doctor if you observe: Using more than 1 pad per hour, Shortness of breath, Chest pain, Calf discomfort, Uncontrolled pain and - (Persistent or severe headache) Suture Line Care: Avoid Pulling/Pushing Remove Dressing in: 4 days Cleanse incision/area with: Soap & Water Follow Up Care Please Follow Up With: Roxanne Frazier MD When: 2 weeks for postop visit and string check 6 weeks for visit Test Results: Test results from this visit will be discussed in further detail at your follow-up appointment, if applicable. Discharge Plan Admission Admit Date/Time: 09/11/20 10:40 Primary Reason for Your Visit: section Attending Provider: Roxanne Frazier Primary Care Provider: Juve Brown Instructions Patient Instructions: After a Discharge Orders/Prescriptions Prescriptions: New ibuprofen 600 mg Tablet 600 mg PO Q8H PRN PRN (Reason: pain) 7 Days Qty: 30 RF: 0 Continued gmsxvnre-[id number]-[id number]-[id number] 1 mg Tablet 1 tab PO DAILY RF: 0 ferrous sulfate 325 mg (65 mg iron) tablet 325 mg PO BID Qty: 60 RF: 3 Referrals / Follow Up: Juve Brown MD [Primary Care Provider] - Disposition Disposition (needs filled in before D/C Order can be placed): Home, Self Care
[2020-09-12] MEDS: Senna/Docusate Sodium 1 Tablet PO (11:00)
--- NOTE | 2020-09-12 11:28 | NURSING ---
Reports qs void. Did not measure.
--- NOTE | 2020-09-12 11:36 | NURSING ---
Jaquelin James supervisor feed house of [facility] called in stating that Chelsie Lizarraga may give consent for circumcision.
[2020-09-12] MEDS: Ibuprofen 600 MG Tablet PO ×2 (14:46→23:07)
--- NOTE | 2020-09-12 19:39 | CASEMGMT ---
MIN Note Reason for Referral: Patient is in custody of [facility] MIN received call from Clau Jeffery asking about consent for circumcision. MIN also spoke to nursery staff regarding patient and they report they are unsure if patient will be discharged on Monday. RN reports Parents want circumcision. MIN called Jaquelin at [facility] via [facility] dispatch. MIN advised that parents are wanting circumcision but child is in custody of [facility]. Jaquelin was unsure but stated she would speak to her teaching supervisor and have the teaching supervisor call staff. MIN also updated Jaquelin that Nursery was unsure if patient would be discharged on Monday. Nursery staff reported that internist is keeping an eye on patient. MIN will call Jaquelin later with update as to how the patient is doing. MIN checked with Víctor, DAMON. She said that patient has been and then they supplement with formula. Patient's temp is good and he got a bath today. Víctor said that patient is doing ok but is spitty and patient is rigid but settles with mom and tremory at times but it is getting better. MIN called Dispatch and requested police detention attendantback shoe worker be updated. MIN spoke to Jaquelin from [facility]. Updated her on the RN report. She will call in the morning to see if patient is being discharged. She was provided with the contact number for charger tester and advised to call in the morning. Jaquelin verbalized understanding. Plan: Patient is in custody of [facility]. Will go to foster care at discharge. [facility] worker will follow up in morning to see if patient is discharged. Edith AMADOR
--- NOTE | 2020-09-12 23:08 | NURSING ---
Upon entering room, strong marijuana smell noted.
[2020-09-13] MEDS: Acetaminophen 500 MG Tablet 1000 MG PO ×2 (00:31→06:36)
[2020-09-13 02:57] VITALS: BP 120/59; PULSE 92; RESP 16; TEMP 37.2; O2SAT 96
[2020-09-13] MEDS: Ibuprofen 600 MG Tablet PO ×2 (05:12→11:33)
--- NOTE | 2020-09-13 07:51 | DS.PCM_ITS ---
Providers Date of Admission: 09/11/20 Primary Care Physician: Dr. Juve Brown MD Reason For Visit: REPEAT C SECTION Diagnosis Discharge Diagnosis (1) delivery delivered: Status: Acute Code(s): O82 - Encounter for delivery without indication Plan: Routine postoperative care A positive Plan for dc today dc per Auto Accessories Installer Medications at Discharge Home Medications ferrous sulfate 325 mg PO BID #60 tab NS 07/31/20 ytoigudm-[id number]-[id number] 1 tab PO DAILY 07/31/20 ibuprofen 600 mg PO Q8H PRN PRN 7 Days #30 tab 09/12/20 Hospital Course Operations section Procedures - (Paragard IUD placement) Summary of Care Provided Hospital Course: 20yo admitted at 38 1/7 weeks gestational age with SROM. She had two prior sections and requested a repeat as well a IUD placement. The patient underwent an uncomplicated section with Paragard IUD placement. Her postoperative course was unremarkable and she was discharged on postoperative day #2. Physical Exam Const alert, oriented x3 and no apparent distress General Appearance: cooperative and comfortable HEENT normocephalic Resp Auscultation: clear to auscultation bilaterally Cardio regular rate, regular rhythm, S1 normal heart sound and S2 normal heart sound GI normal to inspection, nondistended, normoactive bowel sounds, soft to palpation and non-tender GI Narrative: incisional dressing c/d/i OB / External & Speculum: other Uterus Palpation: other OB Fundus firm and nontender Extremity no calf tenderness General Extremity: Negative for edema Weight / BMI Weight Weight: 83.098 kg Body Mass Index (BMI) 28.3 ABG / Lab / Microbiology Data Result Diagrams: 09/12/20 05:45 Microbiology: Microbiology 09/11/20 10:30 Mucosa - Nose SARS-CoV-2 Antigen (Rapid) - Final D/C Instructions Discharge Diet: No restrictions May resume sexual activity in: 4-6 weeks Call your doctor if you observe: Using more than 1 pad per hour, Shortness of breath, Chest pain, Calf discomfort, Uncontrolled pain and - (Persistent or se uriah headache) Suture Line Care: Avoid Pulling/Pushing Cleanse incision/area with: Soap & Water Please Follow Up With: Roxanne Frazier MD When: 2 weeks for postop visit and string check 6 weeks for visit Meaningful Use Info Meaningful Use Diagnoses (Choose all that apply): None applicable Discharge Plan Admission Admit Date/Time: 09/11/20 10:40 Primary Reason for Your Visit: section Attending Provider: Roxanne Frazier Primary Care Provider: Juve Brown Instructions Patient Instructions: After a Discharge Orders/Prescriptions Prescriptions: New ibuprofen 600 mg Tablet 600 mg PO Q8H PRN PRN (Reason: pain) 7 Days Qty: 30 RF: 0 Continued smectuqp-[id number] 1 mg Tablet 1 tab PO DAILY RF: 0 ferrous sulfate 325 mg (65 mg iron) tablet 325 mg PO BID Qty: 60 RF: 3 Referrals / Follow Up: Juve Brown MD [Primary Care Provider] - Disposition Disposition (needs filled in before D/C Order can be placed): Home, Self Care Subjective Subjective: Ambulates and voids without difficulty. Passing flatus. No bowel movement yet. Denies heavy lochia.
[2020-09-13 08:24] VITALS: BP 128/73; PULSE 99; RESP 16; TEMP 36.9; O2SAT 97
[2020-09-13] MEDS: Senna/Docusate Sodium 1 Tablet PO (11:02)
--- NOTE | 2020-09-24 12:05 | CASEMGMT ---
Social Work Labor and Delivery Unit Baby's meconium drug screen results are back. Refer to 's chart for details. Lizeth East at [facility] services notified of results. No other services requested or indicated. -MARYLOU Bo, COUNCIL ON AGING DIRECTOR *Permission document generated via the [employer] system.*
== END 2020-09-13 12:20 | disposition home or self-care (01) | DRG 540 ==
LOC: WPOUT 10:45 → WP 12:46
PROVIDERS: Admitting Provider Obstetrics & Gynecology; PCP Family Medicine; Referring Provider Obstetrics & Gynecology; Visit Provider Obstetrics & Gynecology
DX: O82 Encounter for cesarean delivery without indication (principal); Z3A.38 38 weeks gestation of pregnancy; Z37.0 Single live birth; O99.334 Smoking (tobacco) complicating childbirth; F17.200 Nicotine dependence, unspecified, uncomplicated; O99.02 Anemia complicating childbirth; D64.9 Anemia, unspecified
CPT/HCPCS: 59025; 59050; 80307; 82962; 84112; 85025; 85027; 86850; 86900; 86901; 87426; 99218; J7120; A4216; G0378; J2405

== ENCOUNTER 2021-10-19 15:18 | Emergency (ER) | payer MEDICAID, SELFPAY ==
[2021-10-19 15:20] VITALS: BP 114/75; PULSE 95; RESP 16; TEMP 36; O2SAT 97; BMI 31.5
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
== END 2021-10-19 17:16 | disposition home or self-care (01) ==
PROVIDERS: Emergency Provider Emergency Medicine; PCP Family Medicine; Visit Provider Emergency Medicine
DX: S60.342A External constriction of left thumb, initial encounter (principal); S60.341A External constriction of right thumb, initial encounter; E66.9 Obesity, unspecified; Z87.891 Personal history of nicotine dependence; W49.04XA Ring or other jewelry causing external constriction, initial encounter
CPT/HCPCS: 99283

== ENCOUNTER 2022-01-30 12:38 | Outpatient (REF) | payer SELFPAY ==
[2022-01-30 12:38] VITALS: BP 118/69; PULSE 93; RESP 16; TEMP 35.9; O2SAT 100; BMI 23.5
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
[2022-01-30 12:59] VITALS: PULSE 70; RESP 10; O2SAT 97
[2022-01-30] MEDS: Ondansetron ODT 4 MG Tablet 8 MG PO (13:01)
[2022-01-30 14:11] VITALS: BP 96/53; PULSE 60; RESP 14; O2SAT 98
== END 2022-01-30 14:19 | disposition home or self-care (01) ==
LOC: ED 12:38
PROVIDERS: PCP Family Medicine; Visit Provider Emergency Medicine
DX: R10.9 Unspecified abdominal pain (principal); R11.0 Nausea; R51.9 Headache, unspecified; F17.210 Nicotine dependence, cigarettes, uncomplicated

== ENCOUNTER 2022-06-28 20:09 | Emergency (ER) | payer MEDICAID, SELFPAY ==
[2022-06-28 20:10] VITALS: BP 118/87; PULSE 108; RESP 18; TEMP 35.9; O2SAT 99; BMI 21.5
--- NOTE | 2022-06-28 20:16 | CM.ED ---
Social Work Note SW was contacted by Gita with [facility] to review concerns regarding patient including paranoia, psychosis, drug use, and concerns for safety as the patient was climbing a tree trying to hang from the power lines. Gita reports she has majority of the information and will finish the assessment. Gita does not believe the patient has insurance and will send referral to [place] when patient is medically cleared. Documents to be sent via faxage. assistant hvac mechanic and MD updated [facility] assisting with referral. Plan: inpatient psych hospitalization when medically cleared MATTHEW Galarza
--- NOTE | 2022-06-28 20:52 | EKG12_ITS ---
Test Reason : MENTAL HEALTH Blood Pressure : / mmHG Vent. Rate : 104 BPM Atrial Rate : 104 BPM P-R Int : 126 ms QRS Dur : 088 ms QT Int : 362 ms P-R-T Axes : 076 079 049 degrees QTc Int : 476 ms Sinus tachycardia Right atrial enlargement Borderline ECG Confirmed by ITZEL BARBOZA, ANNABELLE ([id number]), features editor ANGELICA KENNEDY ([id number]) on 07/04/2022 10:47:40 AM Referred By: ASIM Confirmed By:ANNABELLE ROBBINS MD
[2022-06-28 21:23] LABS: Basophil# 0.04 X10^3/uL; Basophil% 0.3 % (0-1); Eosinophil# 0.01 X10^3/uL; Eosinophils% 0.1 % (0-5); Hematocrit 40.6 % (37-47); Hemoglobin 13.6 g/dL (12.0-15.0); Lymphocyte % 17.8 % (19-41); Mean Corp Hgb Conc 33.5 g/dL (32-36); Mean Corpuscular Hgb 30.5 pg (27.0-32.0); Mean Platelet Vol. 9.3 fl (6.2-12.0); Monocyte# 0.92 X10^3/uL; Monocyte% 6.3 % (0-10); NRBC Flagged by Analyzer 0 % (0-5); Neutrophil # 10.95 X10^3/uL (2.7-7.7); Platelet Count 427 K/mm3 (150-450); RBC Distribution Width CV 13.4 % (11.6-14.6); RBC Distribution Width SD 44.8 fl (35.1-43.9); Red Blood Count 4.46 M/mm3 (4.2-5.4); White Blood Count 14.6 K/mm3 (4.4-11.0)
--- NOTE | 2022-06-28 21:25 | ED.RN ---
Pt's father arrives to ED and states he is just going to take her home. This RN explains at counts include 234 beds at the [facility] that she is pink slipped and that she cannot leave the facility until assessed by crisis. Father raised his voice stating we have no right to pink slip her and that its not real. He states watch me when i again tell him he cannot take patient home. HRO called to bedside. Pt very reluctant to let us do any testing. After much talking and emotional support, patient allowed us to draw blood. Pt was assisted to the restroom and asked to give a urine sample. Pt peed and flushed but walked out with an empty specimen cup. Pt then states im just going to piss myself Pt was given a depends after asking for one, she put it on her head. Pt refusing to answer questions. Vick LOW enters room to obtain an EKG per order, patient refuses test. This RN enters room and provides additional emotional support and explanation why this test is necessary. Pt requested female staff to do the EKG. I stated i can do the EKG for her, i started to put the EKG stickers on her and she starts to refuse again. The fathers girlfriend keep telling me to give her some time, she is obviously triggered. 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 Pt then allows this RN to do the EKG.
[2022-06-28 21:40] LABS: Anion Gap 6 (5-15); BUN 25 mg/dL (7-18); BUN/Creat Ratio 26.1 RATIO (10-20); Calcium,Total 9.5 mg/dL (8.5-10.1); Chloride 105 mmol/L (98-107); Creatinine, Serum 0.96 mg/dL (0.55-1.02); EST Glomerular Filtration Rate 76 mL/min (>60); Est Glom Filt Rate - Afr Amer 92 mL/min (>60); Estimated Creatinine Clearance 88.63 ml/min; Glucose 102 mg/dL (74-106); Potassium 3.8 mmol/L (3.5-5.1); Sodium Level 138 mmol/L (136-145)
[2022-06-28 21:48] LABS: Alcohol, Blood (Medical)-Serum < 3.0 mg/dL
[2022-06-28 22:10] LABS: Internal QC Validated? YES +Cl - CLEAR BKGD; Pregnancy, Serum, hCG Quali. NEGATIVE Negative
[2022-06-28 22:41] VITALS: RESP 18
[2022-06-28 23:03] LABS: Amphetamine Urine VISTA POSITIVE (<1000 ng/mL); Barbiturate Urine VISTA NEGATIVE (< 200 ng/mL); Benzodiazepine Urine VISTA NEGATIVE (< 200 ng/mL); Cocaine Urine VISTA NEGATIVE (< 300 ng/mL); Ecstacy Urine VISTA POSITIVE (< 500 ng/mL); Methadone Urine VISTA NEGATIVE (< 300 ng/mL); PCP Urine VISTA NEGATIVE (< 25 ng/mL); THC Urine VISTA POSITIVE (< 50 ng/mL); Vista UDS pH Range 5
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
--- NOTE | 2022-06-28 23:50 | ED.RN ---
Patient walked out of room with cigarette and cook helper juice in hand stating she was going to walk outside and smoke. This RN and multiple other staff tell her she cannot walk outside or smoke, pt was offered a nicotine patch and refused. Pt refusing to go back into her room, HRO called to scene and assists patient back into her room, removes cigarette and cook helper juice from patients hand, tells family again that they can not give the patient these things and if they continue to be a problem they will be asked to leave.
[2022-06-29 00:45] VITALS: RESP 18
--- NOTE | 2022-06-29 00:45 | ED.RN ---
Dispatch calls HRO stating patient is calling 911 from her room. HRO goes to bedside tell patient she can no longer have her phone and that we will take it. Family states they will take her phone, HRO firmly explains to not give patient anything else.
[2022-06-29 00:51] VITALS: PULSE 104; RESP 18; O2SAT 98
[2022-06-29 01:00] VITALS: RESP 18
--- NOTE | 2022-06-29 03:38 | ED.RN ---
Pt asking for nicotine patch and ibuprofen, this RN obtains order and brings medication to patient. she then states i dunno if i want them now This RN states to let me know when you want it.
--- NOTE | 2022-06-29 03:42 | ED.RN ---
Pt assisted to restroom with sitter, pt requesting to brush her teeth. Pt given toothbrush and toothpaste, pt started to brush her hair and eyebrows with said toothbrush and paste. pt then started to wipe her body with wet toilet paper than throw it on the floor. Pt was asked multiple times to stop and did not listen. pt was assisted by multiple staff members back to her room.
[2022-06-29] MEDS: Ziprasidone IM 20 MG/ML VIAL IM (04:07)
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
[2022-06-29 04:15] VITALS: BP 106/65; PULSE 106; RESP 12; O2SAT 96
--- NOTE | 2022-06-29 06:02 | ED.RN ---
Pt med criteria for restraint removal. Pt educated on expected behaviors once out of restraints. Pt agreed. Pt cooperative at this time.
--- NOTE | 2022-06-29 06:02 | ED.RN ---
Pt met criteria for restraint removal. Pt educated on expected behavior once
[2022-06-29 06:15] VITALS: BP 124/78; PULSE 78; RESP 16; O2SAT 100
[2022-06-29 06:17] VITALS: BP 101/64; PULSE 83; RESP 8; O2SAT 100
--- NOTE | 2022-06-29 06:20 | ED.RN ---
Called Evelyn at [facility], report given. Made aware that patient was medicated and sedated at 0400 and taken out of restraints at 0600. Per Evelyn they are ok that it will be longer than 4 hours for pt being medicated but not 4 hours before she leaves. Pt is ok to leave at 0800.
== END 2022-06-29 07:56 ==
PROVIDERS: Emergency Provider Emergency Medicine; PCP Family Medicine; Visit Provider Emergency Medicine
DX: F23 Brief psychotic disorder (principal); F19.19 Other psychoactive substance abuse with unspecified psychoactive substance-induced disorder; R45.851 Suicidal ideations; F17.210 Nicotine dependence, cigarettes, uncomplicated
CPT/HCPCS: 80048; 80307; 82077; 84703; 85025; 87811; 93005; 96372; 99285

== ENCOUNTER 2022-07-08 15:24 | Emergency (ER) | payer MEDICAID, SELFPAY ==
[2022-07-08 15:24] VITALS: BP 107/73; PULSE 70; RESP 18; TEMP 35.5; O2SAT 100; BMI 21.2
== END 2022-07-08 15:40 | disposition left against medical advice (07) ==
LOC: ED 15:52
PROVIDERS: PCP Family Medicine
DX: Z53.21 Procedure and treatment not carried out due to patient leaving prior to being seen by health care provider (principal)

== ENCOUNTER 2022-07-25 01:18 | Emergency (ER) | payer MEDICAID, SELFPAY ==
[2022-07-25 01:19] VITALS: BP 132/81; PULSE 81; RESP 18; TEMP 35.8; O2SAT 100; BMI 22.2
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
[2022-07-25] MEDS: Smz/Tmp Ds Tablet 1 TABLET PO (02:30)
[2022-07-25] MEDS: Lidocaine 1% (20 ml mdv) 20 ML Vial INFILT (02:32)
== END 2022-07-25 02:33 | disposition home or self-care (01) ==
PROVIDERS: Emergency Provider Emergency Medicine; Visit Provider Emergency Medicine
DX: L02.413 Cutaneous abscess of right upper limb (principal); F17.210 Nicotine dependence, cigarettes, uncomplicated
CPT/HCPCS: 10060; 99283